=== PATIENT | male | born 1955 | race Asian ===

== ENCOUNTER 2016-10-08 14:02 | Emergency (ER) | payer MEDICARE, MEDICAID ==
[~2016-10-08] VITALS: Ht 182.9 cm; Wt 65.8 kg
[~2016-10-08 14:02] MED LIST: AMIODARONE HCL200 MG ORAL; AMLODIPINE BESYL5 MG ORAL; ANUSOL-HC25 MG RECTAL; ARICEPT10 MG ORAL; ASPIRIN EC81 MG ORAL; BENADRYL25 MG ORAL; CARVEDILOL25 MG ORAL; COLACE100 MG ORAL; CUBICIN1 MG IVPB; DULCOLAX10 MG RC; FLEET ENEMA133 ML RECTAL; FOSRENOL1000 MG PO; HYDRALAZINE HCL25 M1 ORAL; ISOSORBIDE MONO60 M1 PO; LACTULOSE20 GM/301 ORAL; LAMICTAL25 M1 PO; NEPHRO-VITE RX1 EAC1 PO; PROTEIN LIQUID PO; PROTONIX20 MG ORAL; RENVELA800 MG ORAL; SENSIPAR60 MG PO; TYLENOL325 MG ORAL; ZANTAC300 MG ORAL; ZOCOR20 M1 ORAL
[2016-10-08] MEDS ORDERED: Morphine Sulfate 2mg/ml Inj IM ONE (14:45)
--- NOTE | 2016-10-08 14:56 | Diagnostic Imaging Report ---
Indication: Pain Findings: 3 views of the right shoulder were obtained. There is referred to the distal clavicle. Glenohumeral joint alignment is normal. Bones are osteopenic. There is a stent in the right axilla. Impression: No acute injury. Distal clavicle resorption. Osteopenia
[2016-10-08 15:12] VITALS: BP 136/58
--- NOTE | 2016-10-08 15:38 | Emergency Room Report ---
History of Present Illness General Chief Complaint: Pain Source: Patient, Medical Record Present Illness HPI 60 YO M BIBEMS from SNF for right shoulder pain. Patient endorses fall on shoulder "2 weeks ago." States pain with elevating right shoulder above horizon. Denies pain to right upper arm, forearm, right hand/wrist. Denies pain to anywhere else, hitting head when he fell down. Allergies: Coded Allergies: No Known Allergies (Verified , 10/28/06) Patient History Past Medical History: see triage record, old chart reviewed Past Surgical History: none Pertinent Family History: none Social History: Denies: alcohol use, drug use, smoking Immunizations: UTD Reviewed Nursing Documentation: PMH: Agreed, PSxH: Agreed Nursing Documentation-PMH Past Medical History: No History, Except For Hx Cardiac Problems: Yes - A FIB,CAD,CHF Hx Hypertension: Yes Hx Pacemaker: No - PANCYTOPENIA, Hx COPD: Yes Hx Cancer: No Hx Gastrointestinal Problems: Yes - GERD Hx Dialysis: Yes - UNK SCHEDULE History Of Psychiatric Problem: Yes - SCHIZOPHRENIA Hx Cerebrovascular Accident: Yes - 2010 Hx Head Trauma: Yes Review of Systems All Other Systems: negative except mentioned in HPI Physical Exam Vital Signs Date Time Temp Pulse Resp B/P Pulse Ox O2 Delivery O2 Flow Rate FiO2 10/08/16 14:01 100 16 136/58 97 Room Air Sp02 EP Interpretation: reviewed, abnormal General Appearance: normal inspection, well appearing, no apparent distress, alert, GCS 15, non-toxic Head: normocephalic, atraumatic Eyes: bilateral eye EOMI, bilateral eye PERRL ENT: normal ENT inspection, hearing grossly normal, normal voice Neck: normal inspection, full range of motion, supple, no bony tend Respiratory: normal inspection, lungs clear, normal breath sounds, no respiratory distress, no retraction, no wheezing Cardiovascular #1: regular rate, rhythm, no edema Gastrointestinal: normal inspection, normal bowel sounds, non tender, soft, no guarding, no hernia Genitourinary: no CVA tenderness Musculoskeletal: other - Right shoulder: No obvious deformity. Normal contour of shoulder. Unable to elevate shoulder above horizon. Non tender to upper arm , forearm, wrist, hand Neurologic: normal inspection, alert, oriented x3, responsive, strategic communications manager III-XII nml as tested, motor strength/tone normal, speech normal Psychiatric: normal inspection, judgement/insight normal, mood/affect normal Skin: normal inspection, normal color, no rash, warm/dry Medical Decision Making ER Course Right shoulder xray negative for acute fracture, dislocation, soft tissue injury Distal clavicle resorption, osteopenia Analgesia provided DC back to [facility] Last Vital Signs Date Time Temp Pulse Resp B/P Pulse Ox O2 Delivery O2 Flow Rate FiO2 10/08/16 14:01 100 16 136/58 97 Room Air Status: improved Disposition: [facility] IGNACIO WEBB M.D. Oct 08, 2016 15:38
[2016-10-08 17:35] VITALS: BP 159/35
[2016-10-08 20:18] VITALS: BP 116/48
[2016-10-08 20:40] VITALS: BP 116/48
== END 2016-10-08 20:40 ==
LOC: EDBD → EMR 16:10
DX: M25.511 Pain in right shoulder (principal); I10 Essential (primary) hypertension; J44.9 Chronic obstructive pulmonary disease, unspecified; Z99.2 Dependence on renal dialysis; Z86.73 Personal history of transient ischemic attack (TIA), and cerebral infarction without residual deficits; F20.9 Schizophrenia, unspecified; I48.91 Unspecified atrial fibrillation; I50.9 Heart failure, unspecified; I25.10 Atherosclerotic heart disease of native coronary artery without angina pectoris; M85.811 Other specified disorders of bone density and structure, right shoulder
CPT/HCPCS: 73030; 96372; 99283; J2270

== ENCOUNTER 2016-10-25 06:59 | Inpatient (IN) | payer MEDICARE, MEDICAID ==
[~2016-10-25] VITALS: Ht 170.2 cm; Wt 55.1 kg
--- NOTE | 2016-10-25 07:08 | Emergency Room Report ---
History of Present Illness General Source: Patient Present Illness HPI Patient 60-year-old male who presented after having increased chest pain. Patient had acute onset of symptoms. This was associated with some abdominal pain. The patient brought in by EMS and was noted to be pain-free at the time of arrival. Patient had been given aspirin 162 mg by mouth. Patient had prior history of end-stage renal disease as well as cardiomyopathy. He also had history of COPD. He is currently receiving dialysis.The patient was not given nitroglycerin do to hypotension. Allergies: Coded Allergies: No Known Allergies (Verified , 10/28/06) Patient History Past Medical History: see triage record Reviewed Nursing Documentation: PMH: Agreed, PSxH: Agreed Nursing Documentation-PMH Hx Cardiac Problems: Yes - A FIB,CAD,CHF Hx Hypertension: Yes Hx Pacemaker: No - PANCYTOPENIA, Hx COPD: Yes Hx Cancer: No Hx Gastrointestinal Problems: Yes - GERD Hx Dialysis: Yes - UNK SCHEDULE Hx Cerebrovascular Accident: Yes - 2010 Hx Head Trauma: Yes Review of Systems All Other Systems: negative except mentioned in HPI Physical Exam Sp02 EP Interpretation: reviewed, normal General Appearance: normal inspection, well appearing, no apparent distress, alert, GCS 15, Chronically Ill Head: atraumatic ENT: normal ENT inspection, hearing grossly normal, normal voice Neck: normal inspection, full range of motion, supple, no bony tend Respiratory: normal inspection, lungs clear, normal breath sounds, no respiratory distress, no retraction, no wheezing Cardiovascular #1: regular rate, rhythm, no edema Gastrointestinal: normal inspection, normal bowel sounds, non tender, soft, no guarding, no hernia Genitourinary: no CVA tenderness Musculoskeletal: normal inspection, back normal, normal range of motion Neurologic: normal inspection, alert, oriented x3, responsive, speech normal, motor weakness - right side, right side facial droop Psychiatric: normal inspection, judgement/insight normal, mood/affect normal Skin: normal color, no rash, pallor Medical Decision Making Diagnostic Impression: Primary Impression: Hypotension Additional Impressions: Renal failure Sepsis ER Course Patient reason for chest pain. Differential diagnosis included but was not limited to acute coronary syndrome, pericarditis pulmonary embolism, pneumonia, aortic dissection, shingles, pneumothorax, aortic dissection, esophageal rupture , anemia. Because of complexity of patient's case laboratory testing and imaging studies were ordered.Patient was on cardiac exercise specialist. Rhythm strip interpreted by me showed sinus rhythm with a rate of [address] changes there is noted some lateral T-wave inversion. Patient was noted to be initially mildly hypotensive with a blood pressure 93/38 the patient was given small bolus of normal saline.Patient was noted to have CT of the abdomen pelvis read by radiology with marked splenomegaly. The patient would likely require dialysis. Dr. Jefe Aguayo was contacted for inpatient management due to the patient's hypotension as well as a chest pain. Labs Test 10/25/16 07:20 10/25/16 08:20 White Blood Count 7.5 K/UL (4.8-10.8) Red Blood Count 3.25 M/UL (4.70-6.10) Hemoglobin 9.9 G/DL (14.2-18.0) Hematocrit 33.1 % (42.0-52.0) Mean Corpuscular Volume 102 FL (80-99) Mean Corpuscular Hemoglobin 30.5 PG (27.0-31.0) Mean Corpuscular Hemoglobin Concent 29.9 G/DL (32.0-36.0) Red Cell Distribution Width 16.8 % (11.6-14.8) Platelet Count 37 K/UL (150-450) Mean Platelet Volume 9.6 FL (6.5-10.1) Neutrophils (%) (Auto) % (45.0-75.0) Lymphocytes (%) (Auto) % (20.0-45.0) Monocytes (%) (Auto) % (1.0-10.0) Eosinophils (%) (Auto) % (0.0-3.0) Basophils (%) (Auto) % (0.0-2.0) Differential Total Cells Counted 100 Neutrophils % (Manual) 82 % (45-75) Lymphocytes % (Manual) 7 % (20-45) Monocytes % (Manual) 10 % (1-10) Eosinophils % (Manual) 0 % (0-3) Basophils % (Manual) 0 % (0-2) Band Neutrophils 1 % (0-8) Platelet Estimate Decreased Platelet Morphology Normal Hypochromasia 1+ Anisocytosis 1+ Macrocytosis 1+ Prothrombin Time 13.0 SEC (9.30-11.50) Prothromb Time International Ratio 1.3 (0.9-1.1) Activated Partial Thromboplast Time 39 SEC (23-33) Sodium Level 139 mEQ/L (135-145) Potassium Level 4.2 mEQ/L (3.4-4.9) Chloride Level 95 mEQ/L (98-107) Carbon Dioxide Level 25 mEQ/L (20-30) Anion Gap 19 (5-15) Blood Urea Nitrogen 31 mg/dL (7-23) Creatinine 6.9 mg/dL (0.7-1.2) Estimat Glomerular Filtration Rate 8.2 mL/min (>60) Glucose Level 87 mg/dL (74-106) Lactic Acid Level 0.60 mmol/L (0.66-2.22) Calcium Level 7.3 mg/dL (8.6-10.2) Total Bilirubin 0.7 mg/dL (0.0-1.2) Aspartate Amino Transf (AST/SGOT) 6 U/L (5-40) Alanine Aminotransferase (ALT/SGPT) 5 U/L (3-41) Alkaline Phosphatase 101 U/L (40-129) Total Creatine Kinase 11 U/L (38-174) Creatine Kinase MB < 1.5 ng/mL (< 6.7) Creatine Kinase MB Relative Index Troponin I < 0.30 ng/mL (<=0.30) Total Protein 6.0 g/dL (6.6-8.7) Albumin 2.2 g/dL (3.5-5.2) Globulin 3.8 g/dL Albumin/Globulin Ratio 0.5 (1.0-2.7) Lipase 9 U/L (< 60) EKG Diagnostic Results Rate: normal - 98 Rhythm: NSR ST Segments: other - lateral st depression ASA given to the pt in ED: No - by EMS Rhythm Strip Diag. Results EP Interpretation: yes Rhythm: NSR, no PVC's, no ectopy Status: unchanged Disposition: ADMITTED INPATIENT Condition: Brian Melissa Oct 25, 2016 07:08
[2016-10-25] MEDS ORDERED: Famotidine 20 MG/ 2ML VIAL IVP ONE (07:15)
[2016-10-25 07:45] LABS: MEAN CORPUSCULAR HEMOGLOBIN 30.5 PG (27.0-31.0); MEAN CORPUSCULAR HGB CONC 29.9 G/DL (32.0-36.0); MEAN CORPUSCULAR VOLUME 102 FL (80-99); MEAN PLATELET VOLUME 9.6 FL (6.5-10.1); PLATELET COUNT 37 K/UL (150-450); RED BLOOD COUNT 3.25 M/UL (4.70-6.10); RED CELL DISTRIBUTION WIDTH 16.8 % (11.6-14.8); WHITE BLOOD COUNT 7.5 K/UL (4.8-10.8)
[2016-10-25 08:05] VITALS: BP 85/40
[2016-10-25 08:50] VITALS: BP 91/31
[2016-10-25 08:50] LABS: INR 1.3 (0.9-1.1)
--- NOTE | 2016-10-25 08:50 | Diagnostic Imaging Report ---
Indication: Left lower quadrant pain Technique: Spiral acquisitions obtained through the abdomen and pelvis. No oral contrast utilized, per emergency room physician request No IV contrast utilized, per referring physician request.. Multiplanar reconstructions were generated. Total dose length product 695 mGycm. CTDIvol(s) 13 mGy Comparison: None Findings: Lack of enteric contrast limits assessment of the GI tract. There are a few scattered colonic diverticula. No evidence of diverticulitis. The appendix is normal except that it does contain an appendicolith. There is equivocal mild wall thickening of the sigmoid colon, although this may be just an artifact of under distention. A small amount of free intraperitoneal fluid is seen within the pelvis, and adjacent to the tip of the spleen as well as along Gerota's fascia posteriorly on the right. No small bowel distention. The distal esophagus, stomach, duodenum are unremarkable. No evidence of free intraperitoneal air. Lack of IV contrast limits assessment of the solid organs The spleen is massively enlarged, measures 21 cm long axis dimension. No focal splenic abnormality is demonstrated. The kidneys are atrophic. An unusual large eggshell calcification with a central calcification is seen within the expected region of the left renal pelvis, measures 18 x 17 cm in diameter. There is no associated hydronephrosis. There is a parenchymal calcification within the left renal sinus, as well as multiple bilateral renal cysts. The gallbladder is mildly distended, but no radiopaque stones or wall thickening are evident. The liver, bile ducts, pancreas, adrenals are unremarkable. No retroperitoneal or mesenteric mass or adenopathy. No pelvic mass or adenopathy. There is a left femoral dialysis catheter. The tip of this is at the junction of the inferior vena cava and right atrium. There is edema of the subcutaneous fat and, to a lesser extent, the abdominal fat. There are bilateral small pleural effusions. The heart is enlarged. There is a small anterior wall pericardial effusion. The bones are unremarkable. Impression: Massive splenomegaly, spleen measuring 21 cm in length. No findings to suggest splenic rupture. Mild anasarca, with trace ascites, small bilateral pleural effusions, small pericardial effusion and mild edema of the subcutaneous and abdominal fat Equivocal mild wall thickening of the sigmoid colon, colitis cannot exclude although this may just be an artifact of under distention Diverticulosis. No evidence of diverticulitis Atrophic kidneys, consistent with medical renal disease Cardiomegaly Unusual eggshell calcification apparently within the left renal pelvis, most likely an unusual collecting system calcification. Possibly a post inflammatory lesion. Nonobstructive, face. Left femoral dialysis catheter Bilateral renal cysts The CT scanner at [facility] is accredited by the [employer] and the scans are performed using protocols designed to limit radiation exposure to as low as reasonably achievable to attain images of sufficient resolution adequate for diagnostic evaluation.
[2016-10-25 08:56] LABS: ALANINE AMINOTRANSFERASE 5 U/L (3-41); ALBUMIN/GLOBULIN RATIO 0.5 (1.0-2.7); ANION GAP 19 (5-15); ASPARTATE AMINO TRANSFERASE 6 U/L (5-40); CALCIUM 7.3 mg/dL (8.6-10.2); CARBON DIOXIDE 25 mEQ/L (20-30); CHLORIDE 95 mEQ/L (98-107); CREATININE 6.9 mg/dL (0.7-1.2); GLOMERULAR FILTRATION RATE 8.2 mL/min (>60); HEMOLYSIS 5; LIPASE 9 U/L (< 60); POTASSIUM 4.2 mEQ/L (3.4-4.9); SODIUM 139 mEQ/L (135-145); TROPONIN I < 0.30 ng/mL (<=0.30)
[2016-10-25 09:07] LABS: CKMB < 1.5 ng/mL (< 6.7)
[2016-10-25 09:13] LABS: ANISOCYTOSIS 1+; BAND NEUTROPHILS % (MANUAL) 1 % (0-8); BASOPHILS % (MANUAL) 0 % (0-2); EOSINOPHILS % (MANUAL) 0 % (0-3); HYPOCHROMASIA 1+; LYMPHOCYTES % (MANUAL) 7 % (20-45); MACROCYTES 1+; NEUTROPHILS % (MANUAL) 82 % (45-75); PLATELET ESTIMATE DECREASED; PLATELET MORPHOLOGY NORMAL; TOTAL CELLS COUNTED 100
[2016-10-25] MEDS ORDERED: metroNIDAZOLE 500mg 100 ML IVPB ONE (09:45)
[2016-10-25] MEDS ORDERED: Ampicillin/Sulbactam Sod 3 GM in NS 110 ML IVPB ONE (09:45)
[2016-10-25] MEDS ORDERED: Lactulose 20gm/30ml UDC ORAL PRN (10:30)
[2016-10-25] MEDS ORDERED: Unasyn 3gm Inj ONE (11:29)
[2016-10-25 11:45] VITALS: BP 91/37
--- NOTE | 2016-10-25 11:58 | Diagnostic Imaging Report ---
Indication: Chest pain Technique: One view of the chest Comparison: 02/19/2016 Findings: Tip of a femoral dialysis catheter is seen in the low right atrium. The lungs and pleural spaces are clear. Heart size is normal pleural effusions described on subsequent CT scan are not evident on plain radiography Impression: No acute process
[2016-10-25] MEDS: Aspirin EC 81mg tab ORAL SCH (12:00)
[2016-10-25 12:07] VITALS: BP 95/38
[2016-10-25] MEDS: Carvedilol 25mg Tab ORAL SCH ×2 (12:30→21:43)
[2016-10-25] MEDS: Lanthanum 1000mg tab ORAL SCH (12:30)
[2016-10-25] MEDS: Nephrovite tab ORAL SCH (12:42)
[2016-10-25] MEDS: Sensipar 30mg Tab ORAL SCH (12:42)
[2016-10-25] MEDS: Amiodarone 200mg tab ORAL SCH (12:47)
[2016-10-25] MEDS ORDERED: HydrALAZINE 25mg tab ORAL SCH (14:00)
--- NOTE | 2016-10-25 19:18 | Consultation ---
DATE OF CONSULTATION: 10/25/2016 NEPHROLOGY CONSULTATION REFERRING PHYSICIAN: Jefe Aguayo M.D. REASON FOR CONSULTATION: End-stage renal disease. HISTORY OF PRESENT ILLNESS: The patient is a 61-year-old man with end-stage renal disease, presents with apparently three episodes of chest pain, squeezing in nature, substernal this morning in the ECF. He is found to have low blood pressure in the emergency room. The patient states he has been on dialysis for more than 20 years. Initially had a right arm AV fistula, but the last three months he has been dialyzed from the left groin PermCath. He has had a prior stroke with left-sided weakness. He has also had a history of hypertension, but his blood pressure has been low in the range of 100/60 lately according to the patient. The CT scanning of the abdomen was done apparently for left lower quadrant pain showing anasarca, but no other major lesions. PAST SURGICAL HISTORY: AV access right arm. MEDICATIONS: Amiodarone 200 mg daily, DSS 100 mg b.i.d., Aricept 10 mg daily, Imdur 30 mg daily, Nephro-Kristin one daily, Renvela 800 mg daily, Sensipar 60 mg daily, Fosrenol 1000 mg with breakfast, Lipitor 10 mg daily, Megace 40 mg t.i.d., aspirin 81 mg daily, liquid protein 30 mL daily and he has p.r.n. for Tylenol, Zantac, lactulose, hydralazine and Benadryl. There is Eliquis 2.5 mg b.i.d for atrial fibrillation. Aspirin discontinued. one can t.i.d. and nitroglycerin p.r.n., Remeron 7.5 mg at bedtime. ALLERGIES: None known. HABITS: He is a smoker most of his adult life and he says he continues to smoke a pack a day. Alcohol, he states he quit five years ago. Social, he lives in the [facility]. REVIEW OF SYSTEMS: HEENT: He states vision and hearing is good. Endocrine: He is not aware of any diabetes or thyroid disease. He is on medications for hyperparathyroid. Pulmonary: History of smoking as above. Cardiovascular: He has had chest pains in the past apparently. As far as I can ascertain from the wall and floor tiler, he has not had any coronary artery stenting or angioplasties. Gastrointestinal: He had nausea and vomiting today. No gastrointestinal bleeding. Genitourinary: Makes little urine. Neurologic: History of CVA with left-sided weakness. PHYSICAL EXAMINATION: GENERAL: The patient was seen shortly after arrival, lying in bed, alert, in no acute distress. VITAL SIGNS: Blood pressure is 95/38, pulse 91, temperature 96.8 degrees, and pulse oximetry 99% on room air. HEENT: Sclerae nonicteric. Ocular motions intact in all directions. Oral mucosa moist. NECK: No adenopathy or thyroid enlargement. LUNGS: Clear. HEART: Rhythm is regular. I hear no murmur. ABDOMEN: Soft. No organomegaly or masses. EXTREMITIES: No edema, cyanosis or clubbing. There is muscle wasting. He has a femoral catheter in the left groin. NEUROLOGIC: He is alert and oriented. Cranial nerves are intact. He has left hemipareses. LABORATORY AND DIAGNOSTIC DATA: Review of lab shows chest x-ray with no active disease. White count 9.5 and hemoglobin 9.9. Sodium 139, potassium 4.2, BUN 31, and creatinine 6.9. The troponin less than 0.30. Albumin is 2.2. IMPRESSION: 1. End-stage renal disease, status post missed dialysis. 2. Chest pain, possible acute coronary syndrome with initial troponin is negative and no acute electrocardiogram changes. 3. Moderate protein calorie malnutrition. 4. History of cerebrovascular accident with left hemiparesis. 5. History of active smoking. 6. History of catheter access for hemodialysis. PLAN: Dialysis will be arranged in the hospital. His blood pressure is low. He is not fluid overloaded significantly and we will not do any fluid removal in view of his low blood pressure. Medications have been reviewed for end-stage renal disease and we will watch closely in view of his comorbidities. Thank you so much. Lukas Malloy M.D. DR: DYLAN JOB#: [id number] CC:
[2016-10-25 20:00] VITALS: BP 108/40
[2016-10-25] MEDS ORDERED: Heparin 5000 units/ml inj SUBQ SCH (21:00)
[2016-10-25] MEDS: Donepezil 10mg tab ORAL SCH (21:40)
[2016-10-25] MEDS: Atorvastatin 20mg tab ORAL SCH (21:43)
[2016-10-25] MEDS: Epogen (for ESRD on dialysis) SUBQ SCH (21:44)
[2016-10-26] VITALS: BP 104/54
[2016-10-26 04:00] VITALS: BP 109/43
[2016-10-26 05:59] LABS: TROPONIN I < 0.30 ng/mL (<=0.30)
[2016-10-26] MEDS ORDERED: Heparin Sod 1000 units/ml 10ml IV PRN (06:00)
[2016-10-26 08:00] VITALS: BP 95/41
[2016-10-26] MEDS: Carvedilol 25mg Tab ORAL SCH ×2 (09:00→21:00)
[2016-10-26] MEDS: Amiodarone 200mg tab ORAL SCH (09:00)
--- NOTE | 2016-10-26 09:12 | General Progress Note ---
Assessment/Plan Problem List: (1) Unstable angina ICD Codes: I20.0 - Unstable angina SNOMED: 4924131 (2) ESRD (end stage renal disease) on dialysis ICD Codes: N18.6 - End stage renal disease; Z99.2 - Dependence on renal dialysis SNOMED: 360949795 (3) Chest pain ICD Codes: R07.9 - Chest pain, unspecified SNOMED: 05719968 (4) Renal failure ICD Codes: N19 - Unspecified kidney failure SNOMED: 53176856 (5) Hypotension ICD Codes: I95.9 - Hypotension, unspecified SNOMED: 88854450 Status: stable Assessment/Plan cards eval check duplex antiplt rx HD Subjective ROS Limited/Unobtainable: Yes Constitutional: Reports: malaise, weakness HEENT: Reports: no symptoms Cardiovascular: Reports: chest pain Respiratory: Reports: no symptoms Gastrointestinal/Abdominal: Reports: no symptoms Genitourinary: Reports: no symptoms Neurologic/Psychiatric: Reports: no symptoms Endocrine: Reports: no symptoms Hematologic/Lymphatic: Reports: no symptoms Allergies: Coded Allergies: No Known Allergies (Verified , 10/28/06) All Systems: reviewed and negative except above Subjective no chest pain awaiting HD today. no sob. did not eat Objective Last 24 Hour Vital Signs Date Time Temp Pulse Resp B/P Pulse Ox O2 Delivery O2 Flow Rate FiO2 10/26/16 04:00 82 10/26/16 04:00 98.2 95 14 109/43 95 Room Air 10/26/16 00:00 98.2 89 14 104/54 96 Room Air 10/26/16 00:00 88 10/25/16 21:43 93 108/40 10/25/16 20:00 97.2 93 21 108/40 99 Room Air 10/25/16 20:00 98 10/25/16 12:30 91 95/38 10/25/16 12:15 91 10/25/16 12:07 96.8 91 20 95/38 99 Room Air 10/25/16 11:45 97.5 88 18 91/37 100 Room Air 88 10/25/16 11:41 88 18 91/37 100 Room Air Intake and Output 10/25/16 10/26/16 19:00 07:00 Intake Total 520 ml 300 ml Output Total 0 ml Balance 520 ml 300 ml Intake Oral 320 ml 300 ml IV Total 200 ml Output Urine Total 0 ml # Voids 3 # Bowel Movements 3 Laboratory Tests 10/26/16 04:20: Troponin I < 0.30 Height (Feet): 5 Height (Inches): 7.00 Weight (Pounds): 110 General Appearance: WD/WN, alert Neck: normal alignment, supple, normal inspection Cardiovascular: regular rhythm Respiratory/Chest: lungs clear, normal breath sounds, no respiratory distress, no accessory muscle use Abdomen: normal bowel sounds, non tender, soft, no organomegaly, no mass Edema: no edema noted Arm (L), no edema noted Arm (R), no edema noted Leg (L), no edema noted Leg (R), no edema noted Pedal (L), no edema noted Pedal (R), no edema noted Generalized Neurologic: alert, responsive Skin: normal pigmentation ALVARADO LOZANO Oct 26, 2016 09:12
[2016-10-26] MEDS: Aspirin EC 81mg tab ORAL SCH (09:55)
[2016-10-26] MEDS: Sensipar 30mg Tab ORAL SCH (09:56)
[2016-10-26] MEDS: Nephrovite tab ORAL SCH (09:56)
[2016-10-26] MEDS: Lanthanum 1000mg tab ORAL SCH (09:56)
--- NOTE | 2016-10-26 11:03 | Nephrology Progress Note ---
Assessment/Plan Problem List: (1) Malnutrition of moderate degree (2) CVA, old, hemiparesis (3) ESRD (end stage renal disease) on dialysis (4) Chest pain Plan dialysis 10/26 uf limited by low normal bp Subjective Constitutional: Reports: no symptoms HEENT: Reports: no symptoms Genitourinary: Reports: no symptoms Neurologic/Psychiatric: Reports: no symptoms Objective Objective Last 24 Hour Vital Signs Date Time Temp Pulse Resp B/P Pulse Ox O2 Delivery O2 Flow Rate FiO2 10/26/16 09:00 83 95/41 10/26/16 08:00 83 10/26/16 08:00 98.1 83 18 95/41 98 Room Air 10/26/16 04:00 82 10/26/16 04:00 98.2 95 14 109/43 95 Room Air 10/26/16 00:00 98.2 89 14 104/54 96 Room Air 10/26/16 00:00 88 10/25/16 21:43 93 108/40 10/25/16 20:00 97.2 93 21 108/40 99 Room Air 10/25/16 20:00 98 10/25/16 12:30 91 95/38 10/25/16 12:15 91 10/25/16 12:07 96.8 91 20 95/38 99 Room Air 10/25/16 11:45 97.5 88 18 91/37 100 Room Air 88 10/25/16 11:41 88 18 91/37 100 Room Air Intake and Output 10/25/16 10/26/16 19:00 07:00 Intake Total 520 ml 300 ml Output Total 0 ml Balance 520 ml 300 ml Intake Oral 320 ml 300 ml IV Total 200 ml Output Urine Total 0 ml # Voids 3 # Bowel Movements 3 Laboratory Tests 10/26/16 04:20: Troponin I < 0.30 Height (Feet): 5 Height (Inches): 7.00 Weight (Pounds): 110 General Appearance: no apparent distress, alert EENT: normal ENT inspection Neck: normal alignment Cardiovascular: normal rate, regular rhythm Respiratory/Chest: lungs clear Abdomen: non tender, no organomegaly Extremities: other - no edema Neurologic: motor weakness LOUIE DÍAZ Oct 26, 2016 11:03
[2016-10-26 12:22] VITALS: BP 99/47
[2016-10-26 14:25] LABS: BILIRUBIN,DIRECT 0.2 mg/dL (0.1-0.3); TOTAL PROTEIN 5.7 g/dL (6.6-8.7)
[2016-10-26 16:00] VITALS: BP 80/36
--- NOTE | 2016-10-26 18:08 | History and Physical Report ---
DATE OF ADMISSION: 10/25/2016 HISTORY OF PRESENT ILLNESS: This patient was evaluated in the emergency room. The patient is a 60-year-old male, well known to me. He has a history of end-stage renal disease on chronic hemodialysis, hypertension, stroke, paroxysmal atrial fibrillation, COPD, and he has a prior history of schizoaffective disorder. The patient was transferred from a long term facility with complaints of chest pain. According to the patient, he had substernal chest pain and was transferred to the emergency room. He was noted to be hypotensive. Initial cardiac enzymes in the emergency room were unremarkable. He did have a potassium of 6. Chest x-ray was clear. In light of the patient's prior cardiac history, he is now admitted for further evaluation for possible unstable angina and acute coronary syndrome. PAST MEDICAL HISTORY: As above. PAST SURGICAL HISTORY: History of a left upper extremity AV fistula. MEDICATIONS: Current mediations reconciled and reviewed. ALLERGIES: None. SOCIAL HISTORY: The patient has a prior history of smoking. No alcohol. No drugs. FAMILY HISTORY: None. REVIEW OF SYSTEMS: General: No fever or chills. HEENT: No headaches or visual changes. Cardiopulmonary: Positive chest pain, but no shortness of breath. Gastrointestinal: No nausea or vomiting. Genitourinary: No urgency or frequency. Musculoskeletal: No joint pain or swelling. Neurologic: No evidence of seizures. PHYSICAL EXAMINATION: GENERAL: The patient is well-developed and chronically ill appearing male. He is awake, alert, and answers questions. VITAL SIGNS: Temperature was 98.1 degrees, pulse is 83, respirations 18, and blood pressure 108/40. HEENT: His pupils are equal, round, and reactive to light. Oropharynx clear. NECK: Supple. There is no jugular venous distention. HEART: Regular rate and rhythm. LUNGS: Lungs are clear. ABDOMEN: Soft, nontender and nondistended. EXTREMITIES: No clubbing, cyanosis or edema. There is an AV fistula in the left upper extremity. LABORATORY AND DIAGNOSTIC DATA: Troponin was negative. White count 7, hemoglobin 9, hematocrit 33, and platelets of 37,000. Lactic acid was 0.6. Bicarbonate was 25. LFTs were unremarkable. ASSESSMENT: This is a pleasant male who complaints of chest pain. 1. Chest pain, possible unstable angina/acute coronary syndrome. 2. Chronic obstructive pulmonary disease. 3. Hypertension, now with low blood pressure. 4. History of end-stage renal disease, on chronic hemodialysis. PLAN: Monitor serial troponins. Continue antiplatelet therapy. as needed. Cardiology and Renal consultations will be obtained. Monitor platelet count. Suspect it is secondary to patient's splenomegaly, unclear of the etiology. Consider Hematology/Oncology evaluation. Jefe Aguayo M.D. DR: SON JOB#: [id number] CC:
[2016-10-26 20:00] VITALS: BP 86/37
[2016-10-26] MEDS: Atorvastatin 20mg tab ORAL SCH (21:52)
[2016-10-26] MEDS: Donepezil 10mg tab ORAL SCH (21:54)
[2016-10-27 00:10] VITALS: BP 95/45
[2016-10-27 04:00] VITALS: BP 99/50
[2016-10-27 08:30] VITALS: BP 83/37
[2016-10-27] MEDS ORDERED: NS 250 ML IVPB ONE ×2 (08:45→14:15)
--- NOTE | 2016-10-27 08:58 | General Progress Note ---
Assessment/Plan Problem List: (1) Unstable angina ICD Codes: I20.0 - Unstable angina SNOMED: 4522966 (2) ESRD (end stage renal disease) on dialysis ICD Codes: N18.6 - End stage renal disease; Z99.2 - Dependence on renal dialysis SNOMED: 600285170 (3) Chest pain ICD Codes: R07.9 - Chest pain, unspecified SNOMED: 18575144 (4) Renal failure ICD Codes: N19 - Unspecified kidney failure SNOMED: 44887862 (5) Hypotension ICD Codes: I95.9 - Hypotension, unspecified SNOMED: 37553007 Status: stable, progressing Assessment/Plan cards eval heparin drip antiplt rx HD ivf bolus echo Subjective ROS Limited/Unobtainable: No Constitutional: Reports: fever, malaise HEENT: Reports: no symptoms Cardiovascular: Reports: no symptoms Respiratory: Reports: no symptoms Gastrointestinal/Abdominal: Reports: no symptoms Genitourinary: Reports: no symptoms Neurologic/Psychiatric: Reports: no symptoms Endocrine: Reports: no symptoms Hematologic/Lymphatic: Reports: no symptoms Allergies: Coded Allergies: No Known Allergies (Verified , 10/28/06) All Systems: reviewed and negative except above Subjective no chest pain s/p HD hypotensive this am venous duplex shows femoral dvt no sob. did not eat Objective Last 24 Hour Vital Signs Date Time Temp Pulse Resp B/P Pulse Ox O2 Delivery O2 Flow Rate FiO2 10/27/16 08:30 96.8 98 19 83/37 100 Room Air 10/27/16 05:00 96 10/27/16 04:00 97.9 96 14 99/50 95 Room Air 10/27/16 00:10 98.0 86 18 95/45 98 Room Air 10/27/16 00:00 86 10/26/16 21:00 90 86/37 10/26/16 20:00 91 10/26/16 20:00 98.1 90 18 86/37 98 Room Air 10/26/16 16:27 Room Air 10/26/16 16:16 Room Air 10/26/16 16:00 88 10/26/16 16:00 87 18 80/36 98 Room Air 10/26/16 12:22 97.5 84 18 99/47 100 Room Air 10/26/16 12:00 82 10/26/16 09:00 83 95/41 Intake and Output 3/18/17 3/19/17 19:00 07:00 Intake Total 1360 ml 300 ml Balance 1360 ml 300 ml Intake Oral 360 ml 300 ml IV Total 1000 ml # Bowel Movements 1 Laboratory Tests 10/26/16 15:53: Hepatitis A IgM Antibody [Pending], Hepatitis B Surface Antigen [Pending], Hepatitis B Core IgM Antibody [Pending], Hepatitis C Antibody [Pending] Height (Feet): 5 Height (Inches): 7.00 Weight (Pounds): 110 General Appearance: WD/WN, alert, thin Neck: supple Cardiovascular: regular rhythm Respiratory/Chest: chest wall non-tender, lungs clear, normal breath sounds Abdomen: normal bowel sounds, non tender, soft, no organomegaly Edema: no edema noted Arm (L), no edema noted Arm (R), no edema noted Leg (L), no edema noted Leg (R), no edema noted Pedal (L), no edema noted Pedal (R), no edema noted Generalized Edema: trace edema Neurologic: alert, responsive AVLARADO LOZANO Oct 27, 2016 08:58
[2016-10-27] MEDS: Amiodarone 200mg tab ORAL SCH (09:00)
[2016-10-27] MEDS: Carvedilol 25mg Tab ORAL SCH ×2 (09:00→20:51)
[2016-10-27] MEDS ORDERED: Heparin 5000 units/ml inj IV ONE (09:00)
[2016-10-27] MEDS: Aspirin EC 81mg tab ORAL SCH (09:00)
[2016-10-27] MEDS: Nephrovite tab ORAL SCH (09:00)
[2016-10-27] MEDS: Lanthanum 1000mg tab ORAL SCH (09:00)
[2016-10-27] MEDS ORDERED: Heparin 25,000u/D5W 500ml 500 ML IV SCH (09:00)
[2016-10-27] MEDS: Sensipar 30mg Tab ORAL SCH (09:00)
[2016-10-27 12:03] VITALS: BP 86/35
--- NOTE | 2016-10-27 14:19 | Nephrology Progress Note ---
Assessment/Plan Problem List: (1) Malnutrition of moderate degree (2) CVA, old, hemiparesis (3) ESRD (end stage renal disease) on dialysis (4) Chest pain (5) DVT (deep venous thrombosis) (6) Bacteremia associated with intravascular line (7) Sepsis Plan dialysis 10/26 uf limited by low normal bp, fluid bolus given 10/27 , coag neg staph in bc, vanco ordered, dvt agree with anticoag, would try to avoid ivc filter above femoral dialysis cath, cath may need removal Subjective Constitutional: Reports: weakness HEENT: Reports: no symptoms Neurologic/Psychiatric: Reports: pre-existing deficit Objective Objective Last 24 Hour Vital Signs Date Time Temp Pulse Resp B/P Pulse Ox O2 Delivery O2 Flow Rate FiO2 10/27/16 12:03 96.7 93 20 86/35 99 Room Air 10/27/16 12:00 91 10/27/16 09:00 98 83/37 10/27/16 08:30 96.8 98 19 83/37 100 Room Air 10/27/16 08:00 87 10/27/16 05:00 96 10/27/16 04:00 97.9 96 14 99/50 95 Room Air 10/27/16 00:10 98.0 86 18 95/45 98 Room Air 10/27/16 00:00 86 10/26/16 21:00 90 86/37 10/26/16 20:00 91 10/26/16 20:00 98.1 90 18 86/37 98 Room Air 10/26/16 16:27 Room Air 10/26/16 16:16 Room Air 10/26/16 16:00 88 10/26/16 16:00 87 18 80/36 98 Room Air Intake and Output 10/26/16 10/27/16 19:00 07:00 Intake Total 1360 ml 300 ml Balance 1360 ml 300 ml Intake Oral 360 ml 300 ml IV Total 1000 ml # Bowel Movements 1 Laboratory Tests 10/26/16 15:53: Hepatitis A IgM Antibody [Pending], Hepatitis B Surface Antigen [Pending], Hepatitis B Core IgM Antibody [Pending], Hepatitis C Antibody [Pending] 10/27/16 09:00: Activated Partial Thromboplast Time 34H Height (Feet): 5 Height (Inches): 7.00 Weight (Pounds): 110 General Appearance: no apparent distress, thin EENT: normal ENT inspection Neck: normal alignment, supple Cardiovascular: normal rate, regular rhythm Respiratory/Chest: no respiratory distress Abdomen: non tender, soft Extremities: other - no edema Neurologic: motor weakness LOUIE DÍAZ Oct 27, 2016 14:19
[2016-10-27] MEDS ORDERED: Lidocaine 1% Plain 30 ml INJ PRN (14:30)
[2016-10-27] MEDS ORDERED: Sodium Bicarbonate 8.4% 50ml Inj IV PRN (14:30)
[2016-10-27] MEDS ORDERED: Heparin 2000 units/Ns 1000ml INJ PRN (14:30)
[2016-10-27 16:00] VITALS: BP 74/35
[2016-10-27] MEDS ORDERED: Vancomycin 1gm/D5W 275ml IVPB ONE ×2 (16:00)
[2016-10-27 20:00] VITALS: BP 86/49
[2016-10-27] MEDS: Donepezil 10mg tab ORAL SCH (21:51)
[2016-10-27] MEDS: Atorvastatin 20mg tab ORAL SCH (21:51)
[2016-10-28] VITALS (7 sets, daily range): BP systolic 74–90; BP diastolic 36–55
[2016-10-28] MEDS ORDERED: NS 250 ML IVPB ONE (01:15)
--- NOTE | 2016-10-28 03:08 | Progress Note ---
DATE: 10/27/2016 CARDIOLOGY PROGRESS NOTE: SUBJECTIVE: The patient's condition remains tenuous and unstable. He is on the cardiac observation unit. He has required fluid challenges for low blood pressure readings .he has had blood cultures positive for Coag-negative staph. The patient also has a positive DVT of his right lower extremity and has a femoral catheter in place for hemodialysis. The patient's troponins has been negative. OBJECTIVE: VITAL SIGNS: Blood pressure 74/35, heart rate 88, respiratory rate 18, and afebrile. Monitor sinus. LUNGS: Bilateral breath sounds. CARDIAC: Regular rhythm and rate. Normal S1, S2. ABDOMEN: Soft. EXTREMITIES: No edema. Right catheter site is without drainage. LABORATORY DATA: Albumin 2.6. IMPRESSION: 1. Acute deep venous thrombosis. 2. Coagulase-negative staph bacteremia. 3. Shock likely due to sepsis. 4. Paroxysmal atrial fibrillation on amiodarone . 5. History of cerebrovascular accident with left-sided weakness. 6. Anginal episode, now recovered. 7. Moderate protein calorie malnutrition. PLAN: Volume resuscitation. May need pressors. Consider discontinuation of femoral dialysis catheter. Full anticoagulation. Monitor blood counts. Protein supplement. Continue amiodarone at maintenance doses. Vasu Hayes M.D. DR: Antonieta JOB#: [id number] CC:
--- NOTE | 2016-10-28 04:08 | Consultation ---
DATE OF CONSULTATION: 10/26/2016 REQUESTING PHYSICIAN: Jefe Aguayo M.D. REASON: Chest pain. HISTORY OF PRESENT ILLNESS: This is a 60-year-old male with a history of end-stage renal disease, on hemodialysis, presented to the emergency room with chest pain. He resides at a [place] [facility] facility. He also was hypotensive on arrival to the emergency room. He had abnormal electrolytes, but a normal troponin level. Hospitalization was initiated. I have been asked to assist with further care. PAST MEDICAL HISTORY: Includes: 1. End-stage renal disease, on hemodialysis. 2. Cerebrovascular disease with left hemiparesis. 3. History of right arm AV fistula, nonfunctional, now with left groin PermCath. 4. Hypertension. 5. Paroxysmal atrial fibrillation. 6. Chronic obstructive pulmonary disease. 7. Hyperlipidemia. 8. Anemia of chronic kidney disease. 9. Atherosclerotic cardiovascular disease. SOCIAL HISTORY: Active smoker 50 plus pack years. Moderate alcohol in the past up until five years ago. ALLERGIES: No allergies. MEDICATIONS: Reviewed and reconciled. REVIEW OF SYSTEMS: No history of thyroid disorder or diabetes. He is on anti-lipid drugs. No history of visual or hearing loss. No history of blood clotting. He is on anticoagulants for his atrial fibrillation. There is no history of coronary artery stents in the past or myocardial infarction. He has had a prior stroke. He was on dialysis three times a week. He has not had any change in bowel habits and he denies melena or bright red blood per rectum. PHYSICAL EXAMINATION: VITAL SIGNS: Blood pressure 95/38, pulse 91, respirations 20, and afebrile. HEENT: Normocephalic and atraumatic. Conjunctivae are pink. Oropharynx is clear. NECK: Supple. Jugular venous pressure normal. LUNGS: Clear CARDIAC: Regular rhythm and rate. Normal S1 and S2 with a fourth heart sound. ABDOMEN: Soft and nontender. Dialysis catheter site clean and dry. EXTREMITIES: No edema. IMAGING AND LABORATORY DATA: EKG revealed sinus rhythm at 98 beats per minute, nonspecific ST changes in the lateral leads. White count 7.5 and hemoglobin 9.9. Sodium 139, potassium 4.2, bicarbonate 25, BUN 31, and creatinine 6.9. Troponin negative x3. Echocardiogram revealed normal ejection fraction and moderate aortic, mitral, and tricuspid regurgitation with no pulmonary hypertension. IMPRESSION: 1. Acute coronary syndrome. 2. Hypotension. 3. Chronic obstructive pulmonary disease. 4. End-stage renal disease. 5. Anemia of chronic kidney disease. 6. Cerebrovascular accident with left-sided weakness. PLAN: 1. Cardiac monitoring. 2. Serial troponin. 3. Antiplatelet therapy. 4. Hemodialysis without ultrafiltration. 5. May need fluid challenge. 6. Hold antihypertensives. 7. Further recommendations to follow based on clinical course. Vasu Hayes M.D. DR: AUBREY JOB#: [id number] CC:
[2016-10-28 04:20] LABS: MEAN CORPUSCULAR HEMOGLOBIN 30.3 PG (27.0-31.0); MEAN CORPUSCULAR HGB CONC 30.5 G/DL (32.0-36.0); MEAN CORPUSCULAR VOLUME 99 FL (80-99); MEAN PLATELET VOLUME 8.4 FL (6.5-10.1); PLATELET COUNT 57 K/UL (150-450); RED BLOOD COUNT 2.63 M/UL (4.70-6.10); RED CELL DISTRIBUTION WIDTH 16.7 % (11.6-14.8); WHITE BLOOD COUNT 6.2 K/UL (4.8-10.8)
[2016-10-28 04:30] LABS: INR 1.2 (0.9-1.1); PROTHROMBIN TIME 12.1 SEC (9.30-11.50)
[2016-10-28 04:39] LABS: CALCIUM 7.4 mg/dL (8.6-10.2); CREATININE 7.3 mg/dL (0.7-1.2); GLOMERULAR FILTRATION RATE 7.7 mL/min (>60); POTASSIUM 4.4 mEQ/L (3.4-4.9)
[2016-10-28 08:28] LABS: ANISOCYTOSIS 1+; BAND NEUTROPHILS % (MANUAL) 0 % (0-8); BASOPHILS % (MANUAL) 0 % (0-2); EOSINOPHILS % (MANUAL) 0 % (0-3); HYPOCHROMASIA 1+; LYMPHOCYTES % (MANUAL) 16 % (20-45); NEUTROPHILS % (MANUAL) 82 % (45-75); PLATELET ESTIMATE DECREASED; PLATELET MORPHOLOGY NORMAL; TOTAL CELLS COUNTED 100
[2016-10-28 08:29] LABS: MACROCYTES 1+
[2016-10-28] MEDS: Aspirin EC 81mg tab ORAL SCH (08:39)
[2016-10-28] MEDS: Amiodarone 200mg tab ORAL SCH (08:39)
[2016-10-28] MEDS: Sensipar 30mg Tab ORAL SCH (08:39)
[2016-10-28] MEDS: Nephrovite tab ORAL SCH (08:39)
[2016-10-28] MEDS: Lanthanum 1000mg tab ORAL SCH (08:40)
[2016-10-28] MEDS: Carvedilol 25mg Tab ORAL SCH ×2 (08:40→20:47)
[2016-10-28 08:42] LABS: PATH BLOOD SMEAR/OMC SENT TO PATHOLOGIST
[2016-10-28 10:05] LABS: HEMOLYSIS 4; IRON 29 ug/dL (59-158); TOTAL IRON BINDING CAPACITY 109 ug/dL (250-400)
--- NOTE | 2016-10-28 14:09 | General Progress Note ---
Assessment/Plan Problem List: (1) Unstable angina ICD Codes: I20.0 - Unstable angina SNOMED: 2132114 (2) ESRD (end stage renal disease) on dialysis ICD Codes: N18.6 - End stage renal disease; Z99.2 - Dependence on renal dialysis SNOMED: 151349576 (3) Chest pain ICD Codes: R07.9 - Chest pain, unspecified SNOMED: 97535247 (4) Renal failure ICD Codes: N19 - Unspecified kidney failure SNOMED: 98883428 (5) Hypotension ICD Codes: I95.9 - Hypotension, unspecified SNOMED: 19735653 Status: stable, progressing Assessment/Plan cards eval heme eval antiplt rx HD ivf bolus prn transfuse transposition and avf weds if cleared by all by cannot anticoagulate/heparinze due to anemia and low plts bed rest echo Subjective ROS Limited/Unobtainable: No Constitutional: Reports: malaise, weakness HEENT: Reports: no symptoms Cardiovascular: Reports: no symptoms Respiratory: Reports: no symptoms Gastrointestinal/Abdominal: Reports: no symptoms Genitourinary: Reports: no symptoms Neurologic/Psychiatric: Reports: no symptoms Endocrine: Reports: no symptoms Hematologic/Lymphatic: Reports: anemia Allergies: Coded Allergies: No Known Allergies (Verified , 10/28/06) All Systems: reviewed and negative except above Subjective + dvt on duplex. cannot place ivc filter due to fermoral perm cath pt refusing removal cannot anticoagulate safely with low plts no bleeding noted Objective Last 24 Hour Vital Signs Date Time Temp Pulse Resp B/P Pulse Ox O2 Delivery O2 Flow Rate FiO2 10/28/16 12:00 82 10/28/16 11:26 97.9 87 20 74/37 98 Room Air 10/28/16 08:40 84 83/55 10/28/16 08:02 97.7 84 20 83/55 97 Room Air 10/28/16 08:00 87 10/28/16 04:00 96.8 89 20 82/36 98 Room Air 10/28/16 03:56 91 10/28/16 01:30 90 10/28/16 00:45 96.8 89 20 82/36 98 Room Air 10/27/16 20:51 78 86/49 10/27/16 20:00 97.7 96 20 86/49 96 Room Air 10/27/16 20:00 90 10/27/16 16:00 85 10/27/16 16:00 97.0 88 18 74/35 93 Room Air Intake and Output 10/27/16 10/28/16 19:00 07:00 Intake Total 2643 ml 590 ml Output Total 0 ml Balance 2643 ml 590 ml Intake Oral 370 ml 240 ml IV Total 2273 ml 100 ml Hemodialysis 250 ml Output Urine Total 0 ml # Bowel Movements 1 1 Laboratory Tests 10/28/16 04:00: White Blood Count 6.2, Red Blood Count 2.63L, Hemoglobin 8.0L, Hematocrit 26.2L , Mean Corpuscular Volume 99, Mean Corpuscular Hemoglobin 30.3, Mean Corpuscular Hemoglobin Concent 30.5L, Red Cell Distribution Width 16.7H, Platelet Count 57L, Mean Platelet Volume 8.4, Neutrophils (%) (Auto) , Lymphocytes (%) (Auto) , Monocytes (%) (Auto) , Eosinophils (%) (Auto) , Basophils (%) (Auto) , Differential Total Cells Counted 100, Neutrophils % ( Manual) 82H, Lymphocytes % (Manual) 16L, Monocytes % (Manual) 2, Eosinophils % ( Manual) 0, Basophils % (Manual) 0, Band Neutrophils 0, Platelet Estimate DecreasedL, Platelet Morphology Normal, Hypochromasia 1+, Anisocytosis 1+, Macrocytosis 1+, Reticulocyte Count 1.1, Prothrombin Time 12.1H, Prothromb Time International Ratio 1.2H, Activated Partial Thromboplast Time 35H, Sodium Level 139, Potassium Level 4.4, Chloride Level 102, Carbon Dioxide Level 21, Anion Gap 16H, Blood Urea Nitrogen 35H, Creatinine 7.3H, Estimat Glomerular Filtration Rate 7.7, Glucose Level 110H, Calcium Level 7.4L, Iron Level 29L, Total Iron Binding Capacity 109L, Percent Iron Saturation 27, Unsaturated Iron Binding 80L, Ferritin [Pending], Random Vancomycin Level 25.9, Heparin-PF4 Antibody Screen [Pending], HIV (1&2) Antibody Rapid Negative Height (Feet): 5 Height (Inches): 7.00 Weight (Pounds): 110 Objective General Appearance: WD/WN, alert, thin Neck: supple Cardiovascular: regular rhythm Respiratory/Chest: chest wall non-tender, lungs clear, normal breath sounds Abdomen: normal bowel sounds, non tender, soft, no organomegaly Edema: no edema noted Arm (L), no edema noted Arm (R), no edema noted Leg (L), no edema noted Leg (R), no edema noted Pedal (L), no edema noted Pedal (R), no edema noted Generalized Edema: trace edema Neurologic: alert, responsive ALVARADO LOZANO Oct 28, 2016 14:09
[2016-10-28 14:18] LABS: FERRITIN 1093 ng/mL (10-230)
[2016-10-28] MEDS ORDERED: NS 550ML IV ONE (18:56)
[2016-10-28] MEDS ORDERED: NS 275ml ONE (18:56)
--- NOTE | 2016-10-28 20:38 | Consultation ---
DATE OF CONSULTATION: 10/28/2016 REASON FOR CONSULTATION: I was asked to see this patient by Dr. Jefe Aguayo for evaluation of end-stage renal disease with clotted left forearm Venkata fistula and DVT of the left common femoral vein with presence of a left femoral PermCath. HISTORY OF PRESENT ILLNESS: The patient is a 60-year-old male, a patient of Dr. Aguayo. It is not clear how long he has been on chronic hemodialysis. PAST MEDICAL HISTORY: Includes hypertension, stroke, , chronic obstructive pulmonary disease. There is a history of a schizoaffective disorder. The patient was transferred from a intermediate facility with chest pain. According to the emergency room, he was hypotensive. Initial cardiac enzymes in the emergency room were unremarkable. He did have a potassium of 6 and was obviously in need of dialysis. Venous duplex scanning was carried out and was interpreted as thrombosis of the left common femoral vein where a femoral PermCath was present. Initial laboratory work has revealed a platelet count of 37,000 as well as other abnormalities. The troponin was negative confirming that he did not have myocardial ischemia. PHYSICAL EXAMINATION: On physical examination, there is presence of a left forearm Venkata fistula with multiple aneurysms. The fistula is clotted and that there is no bruit or thrill. There is presence of a left femoral PermCath which appears uninfected. This patient has a dual problem, DVT of the left common femoral in the presence of thrombocytopenia. I feel that before removing the PermCath, his only access for dialysis, we have a Hematology consult to see if low-dose heparin intravenously can be done, it may be that he has a DIC type of problem were heparin would actually be evaluate in elevating the platelet count. When this problem is resolved, the PermCath should be removed and a right jugular PermCath to be placed by Interventional Radiology. At that point, we can decide whether an left upper arm AV fistula using the basilic vein can be carried out. I have ordered vein mapping for this purpose. Thank you for asking me to see in consultation. Mynor Julian M.D. DR: Jessica JOB#: [id number] CC:
--- NOTE | 2016-10-28 20:46 | Nephrology Progress Note ---
Assessment/Plan Problem List: (1) Malnutrition of moderate degree (2) CVA, old, hemiparesis (3) ESRD (end stage renal disease) on dialysis (4) Chest pain (5) DVT (deep venous thrombosis) (6) Bacteremia associated with intravascular line (7) Sepsis Plan dialysis 10/26 uf limited by low normal bp, fluid bolus given 10/27 , coag neg staph in , vanco ordered, dvt thrombocytopenia and studies ordered, would try to avoid ivc filter above femoral dialysis cath, cath may need removal, repeat blood cultures Subjective Constitutional: Reports: weakness HEENT: Reports: no symptoms Genitourinary: Reports: no symptoms Neurologic/Psychiatric: Reports: pre-existing deficit Objective Objective Last 24 Hour Vital Signs Date Time Temp Pulse Resp B/P Pulse Ox O2 Delivery O2 Flow Rate FiO2 10/28/16 17:18 96.6 87 85/38 10/28/16 15:27 96.4 83 19 80/39 98 Room Air 10/28/16 12:00 82 10/28/16 11:26 97.9 87 20 74/37 98 Room Air 10/28/16 08:40 84 83/55 10/28/16 08:02 97.7 84 20 83/55 97 Room Air 10/28/16 08:00 87 10/28/16 04:00 96.8 89 20 82/36 98 Room Air 10/28/16 03:56 91 10/28/16 01:30 90 10/28/16 00:45 96.8 89 20 82/36 98 Room Air 10/27/16 20:51 78 86/49 Intake and Output 10/27/16 10/28/16 19:00 07:00 Intake Total 2643 ml 590 ml Output Total 0 ml Balance 2643 ml 590 ml Intake Oral 370 ml 240 ml IV Total 2273 ml 100 ml Hemodialysis 250 ml Output Urine Total 0 ml # Bowel Movements 1 1 Laboratory Tests 10/28/16 04:00: White Blood Count 6.2, Red Blood Count 2.63L, Hemoglobin 8.0L, Hematocrit 26.2L , Mean Corpuscular Volume 99, Mean Corpuscular Hemoglobin 30.3, Mean Corpuscular Hemoglobin Concent 30.5L, Red Cell Distribution Width 16.7H, Platelet Count 57L, Mean Platelet Volume 8.4, Neutrophils (%) (Auto) , Lymphocytes (%) (Auto) , Monocytes (%) (Auto) , Eosinophils (%) (Auto) , Basophils (%) (Auto) , Differential Total Cells Counted 100, Neutrophils % ( Manual) 82H, Lymphocytes % (Manual) 16L, Monocytes % (Manual) 2, Eosinophils % ( Manual) 0, Basophils % (Manual) 0, Band Neutrophils 0, Platelet Estimate DecreasedL, Platelet Morphology Normal, Hypochromasia 1+, Anisocytosis 1+, Macrocytosis 1+, Reticulocyte Count 1.1, Prothrombin Time 12.1H, Prothromb Time International Ratio 1.2H, Activated Partial Thromboplast Time 35H, Sodium Level 139, Potassium Level 4.4, Chloride Level 102, Carbon Dioxide Level 21, Anion Gap 16H, Blood Urea Nitrogen 35H, Creatinine 7.3H, Estimat Glomerular Filtration Rate 7.7, Glucose Level 110H, Calcium Level 7.4L, Iron Level 29L, Total Iron Binding Capacity 109L, Percent Iron Saturation 27, Unsaturated Iron Binding 80L, Ferritin 1093H, Random Vancomycin Level 25.9, Heparin-PF4 Antibody Screen [Pending], HIV (1&2) Antibody Rapid Negative Height (Feet): 5 Height (Inches): 7.00 Weight (Pounds): 110 General Appearance: no apparent distress, thin EENT: normal ENT inspection Cardiovascular: normal rate, regular rhythm Respiratory/Chest: lungs clear, normal breath sounds Abdomen: non tender, soft, no organomegaly Neurologic: motor weakness LOUIE DÍAZ Oct 28, 2016 20:46
[2016-10-28] MEDS: Atorvastatin 20mg tab ORAL SCH (21:00)
[2016-10-28] MEDS: Donepezil 10mg tab ORAL SCH (21:01)
[2016-10-28] MEDS: Epogen (for ESRD on dialysis) SUBQ SCH (21:52)
[2016-10-28] MEDS ORDERED: Zosyn 2.25gm inj IV SCH (22:45)
[2016-10-28] MEDS ORDERED: Vancomycin 1gm/D5W 275ml IVPB ONE ×2 (23:00)
[2016-10-29] VITALS: BP 133/85
[2016-10-29] MEDS ORDERED: Zosyn 3.375gm inj ONE (00:51)
[2016-10-29] MEDS ORDERED: Zosyn 3.375gm q12h **Extended infusion IVPB SCH ×2 (01:00)
--- NOTE | 2016-10-29 03:29 | Progress Note ---
DATE: 10/28/2016 SUBJECTIVE: The patient has been hypotensive. Fluid boluses have been given. Blood cultures are positive for coag-negative staph. Echocardiogram is notable for vegetation on the aortic valve. OBJECTIVE: VITAL SIGNS: Blood pressure 85/38, pulse 87, and respirations 19. LUNGS: Clear. CARDIAC: Regular rhythm and rate. Normal S1 and S2. A 1/6 systolic ejection murmur. ABDOMEN: Soft. EXTREMITIES: Trace edema. LABORATORY DATA: Laboratories reviewed. IMPRESSION: 1. 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 2. Bacteremia with coagulase-negative Staphylococcus. 3. End-stage renal disease. 4. Sepsis with shock. PLAN: 1. Continue antibiotics. 2. Hydrate. 3. Limit ultrafiltration. 4. Await final cultures. 5. Consider transesophageal echocardiogram. 6. Will need transfer to a tertiary care facility for cardiothoracic evaluation and likely surgery. Vasu Hayes M.D. DR: CONNER JOB#: [id number] CC:
[2016-10-29 04:00] VITALS: BP 100/55
[2016-10-29] MEDS ORDERED: Heparin Sod 1000 units/ml 10ml IV PRN (06:00)
--- NOTE | 2016-10-29 08:24 | Cardiology Report ---
APPROVED REPORT EXAM: Two-dimensional and M-mode echocardiogram with Doppler and color Doppler. INDICATION Angina pectoris M-Mode DIMENSIONS IVSd1.7 (0.7-1.1cm)Left Atrium (MM)4.8 (1.6-4.0cm) LVDd4.7 (3.5-5.6cm)Aortic Root2.8 (2.0-3.7cm) PWd1.0 (0.7-1.1cm)Aortic Cusp Exc.1.8 (1.5-2.0cm) LVDs3.2 (2.5-4.0cm) PWs0.9 cm Normal left ventricular chamber size, systolic function and wall motion. Left ventricular ejection fraction estimated to be 60-65%. Moderate left ventricular hypertrophy. Large posterior pleural effusion. Right cardiac chamber sizes are within normal limits. Moderate left atrial enlargement by 2D. Focal aortic valve sclerosis with adequate cusp excursion Thickened mitral valve leaflets with normal excursion. Mitral annulus and aortic root calcification. Pulmonic valve is well visualized. Normal tricuspid valve structure. IVC is normal in size with physiologic collapse. Highly mobile echodensity seen on right coronary cusp sspiciosu for vegatation findings discussed with dr rutledge 10/28/2016 A color flow and spectral Doppler study was performed and revealed: Moderate aortic regurgitation. Moderate mitral regurgitation. Normal left ventricular function. Mild tricuspid regurgitation. Tricuspid systolic velocities suggests peak right ventricular systolic pressure of 32 mmHg Pulmonic regurgitation present.
[2016-10-29 08:37] VITALS: BP 82/34
--- NOTE | 2016-10-29 08:42 | General Progress Note ---
Assessment/Plan Problem List: (1) Unstable angina ICD Codes: I20.0 - Unstable angina SNOMED: 4339571 (2) ESRD (end stage renal disease) on dialysis ICD Codes: N18.6 - End stage renal disease; Z99.2 - Dependence on renal dialysis SNOMED: 477801700 (3) Chest pain ICD Codes: R07.9 - Chest pain, unspecified SNOMED: 23382845 (4) Renal failure ICD Codes: N19 - Unspecified kidney failure SNOMED: 80265533 (5) Hypotension ICD Codes: I95.9 - Hypotension, unspecified SNOMED: 49445547 (6) Endocarditis ICD Codes: I38 - Endocarditis, valve unspecified SNOMED: 692489, 65090051 Status: stable, not improved Assessment/Plan iv abx ID eval possible WILLIS. HD per renal possible transfer to [facility] for CT surgery eval bed rest for dvt. cannot put ivc filter due to groin perm cath. plts too low to heparinize status and poc d/w pt with [employer] Subjective ROS Limited/Unobtainable: No Constitutional: Reports: malaise, weakness HEENT: Reports: no symptoms Cardiovascular: Reports: no symptoms Respiratory: Reports: no symptoms Gastrointestinal/Abdominal: Reports: no symptoms Genitourinary: Reports: no symptoms Neurologic/Psychiatric: Reports: no symptoms Endocrine: Reports: no symptoms Hematologic/Lymphatic: Reports: anemia Allergies: Coded Allergies: No Known Allergies (Verified , 10/28/06) All Systems: reviewed and negative except above Subjective TTE shows large vegetation on aortic valve. pt w/o complaints. no cp/sob. + blood cultures noted. on iv abx ID eval called. cards noted Objective Last 24 Hour Vital Signs Date Time Temp Pulse Resp B/P Pulse Ox O2 Delivery O2 Flow Rate FiO2 10/29/16 04:00 97.0 9 16 100/55 10/29/16 04:00 87 10/29/16 00:00 97.3 94 14 133/85 95 Room Air 10/29/16 00:00 94 10/28/16 20:00 97.5 83 18 90/48 98 10/28/16 20:00 91 10/28/16 17:18 96.6 87 85/38 10/28/16 16:00 83 10/28/16 15:27 96.4 83 19 80/39 98 Room Air 10/28/16 12:00 82 10/28/16 11:26 97.9 87 20 74/37 98 Room Air 10/28/16 08:40 84 83/55 Intake and Output 10/28/16 10/29/16 19:00 07:00 Intake Total 410.0 ml Output Total 2 ml Balance 408.0 ml Intake Oral 300 ml IV Total 110.0 ml Output Urine Total 2 ml # Bowel Movements 1 2 Height (Feet): 5 Height (Inches): 7.00 Weight (Pounds): 110 Objective General Appearance: WD/WN, alert, thin Neck: supple Cardiovascular: regular rhythm Respiratory/Chest: chest wall non-tender, lungs clear, normal breath sounds Abdomen: normal bowel sounds, non tender, soft, no organomegaly Edema: no edema noted Arm (L), no edema noted Arm (R), no edema noted Leg (L), no edema noted Leg (R), no edema noted Pedal (L), no edema noted Pedal (R), no edema noted Generalized Edema: trace edema Neurologic: alert, responsive ALVARADO LOZANO Oct 29, 2016 08:42
[2016-10-29] MEDS: Carvedilol 25mg Tab ORAL SCH ×2 (08:46→21:00)
[2016-10-29] MEDS: Sensipar 30mg Tab ORAL SCH ×2 (08:55→09:00)
[2016-10-29] MEDS: Aspirin EC 81mg tab ORAL SCH ×2 (08:56→09:00)
[2016-10-29] MEDS: Amiodarone 200mg tab ORAL SCH ×2 (08:56→09:00)
[2016-10-29] MEDS: Lanthanum 1000mg tab ORAL SCH ×2 (08:56→09:00)
[2016-10-29] MEDS: Nephrovite tab ORAL SCH ×2 (08:56→09:00)
[2016-10-29 10:02] LABS: MEAN CORPUSCULAR HEMOGLOBIN 29.2 PG (27.0-31.0); MEAN CORPUSCULAR HGB CONC 30.1 G/DL (32.0-36.0); MEAN CORPUSCULAR VOLUME 97 FL (80-99); MEAN PLATELET VOLUME 9.1 FL (6.5-10.1); PLATELET COUNT 54 K/UL (150-450); RED BLOOD COUNT 3.56 M/UL (4.70-6.10); RED CELL DISTRIBUTION WIDTH 17.5 % (11.6-14.8); WHITE BLOOD COUNT 7.5 K/UL (4.8-10.8)
--- NOTE | 2016-10-29 10:05 | Diagnostic Imaging Report ---
Indication: Abdominal pain, abnormal renal function tests, splenomegaly Technique: Mccarty-scale and duplex images of the upper abdomen were obtained Comparison: 10/25/2016 CT abdomen and pelvis Findings: There is trace ascites fluid present. There is trace right pleural effusion. Gallbladder is negative for stones. Gallbladder wall is thickened, measuring 5 mm thick. No pericholecystic fluid. Sonographic Morgan's sign is negative. Common bile duct measures 5 mm in diameter. No intrahepatic biliary ductal dilatation. Liver demonstrates normal echogenicity, no focal abnormality. It is somewhat enlarged. A calcification is seen within the liver. This is probably arterial, as no parenchymal calcifications are seen on recent CT. Portal vein and hepatic veins are patent.. Pancreas is unremarkable. The spleen is enlarged, measuring 22.5 cm long axis dimension. There is a 15 mm hypoechoic area within the anterior spleen which is not visible on recent CT. Left kidney measures 9.7 cm in length. Right kidney measures I.8 cm length. Both kidneys demonstrate markedly increased echogenicity. There is no hydronephrosis. There are small renal cysts on the left. Non-aneurysmal abdominal aorta. Impression: Splenomegaly, also described on recent CT Nonspecific 1.5 cm low-attenuation lesion within the anterior spleen, not visible on recent CT. Differential considerations include complex cyst, hemangioma, neoplasm, among other possibilities. Recommend contrast CT for further evaluation when patient's condition permits Trace ascites Mild hepatomegaly Trace right pleural effusion Negative for gallstones or dilated ducts Gallbladder wall thickening. Most likely on the basis of hemodynamic derangements causing the ascites and pleural fluid. However, acute acalculous cholecystitis cannot be completely ruled out, and further evaluation with hepatobiliary nuclear scan should be considered if there is high clinical suspicion Atrophic echogenic bilateral kidneys, consistent with history of chronic renal disease Incidental finding small left renal cysts
[2016-10-29 11:10] LABS: BAND NEUTROPHILS % (MANUAL) 0 % (0-8); BASOPHILS % (MANUAL) 0 % (0-2); EOSINOPHILS % (MANUAL) 1 % (0-3); LYMPHOCYTES % (MANUAL) 13 % (20-45); NEUTROPHILS % (MANUAL) 80 % (45-75); PLATELET ESTIMATE DECREASED; PLATELET MORPHOLOGY NORMAL; TOTAL CELLS COUNTED 100
[2016-10-29 11:11] LABS: ANISOCYTOSIS 1+; HYPOCHROMASIA 1+; MACROCYTES 1+
[2016-10-29 11:37] VITALS: BP 91/40
--- NOTE | 2016-10-29 11:39 | Cardiology Report ---
APPROVED REPORT EKG Measurement Heart [id number] Normal sinus rhythm Prolonged QT Abnormal ECG
--- NOTE | 2016-10-29 12:56 | Nephrology Progress Note ---
Assessment/Plan Problem List: (1) Malnutrition of moderate degree (2) CVA, old, hemiparesis (3) ESRD (end stage renal disease) on dialysis (4) Chest pain (5) DVT (deep venous thrombosis) (6) Bacteremia associated with intravascular line (7) Sepsis Plan dialysis 10/29 uf limited by low normal bp, fluid bolus given 10/27 , coag neg staph in , vanco ordered, dvt thrombocytopenia and studies ordered, would try to avoid ivc filter above femoral dialysis cath, cath may need removal, repeat blood cultures 10/29 Subjective Constitutional: Reports: weakness HEENT: Reports: no symptoms Genitourinary: Reports: no symptoms Neurologic/Psychiatric: Reports: pre-existing deficit Objective Objective Last 24 Hour Vital Signs Date Time Temp Pulse Resp B/P Pulse Ox O2 Delivery O2 Flow Rate FiO2 10/29/16 11:37 97.3 89 20 91/40 98 Room Air 10/29/16 08:46 90 82/34 10/29/16 08:37 97.5 90 18 82/34 98 Room Air 10/29/16 04:00 97.0 9 16 100/55 10/29/16 04:00 87 10/29/16 00:00 97.3 94 14 133/85 95 Room Air 10/29/16 00:00 94 10/28/16 20:00 97.5 83 18 90/48 98 10/28/16 20:00 91 10/28/16 17:18 96.6 87 85/38 10/28/16 16:00 83 10/28/16 15:27 96.4 83 19 80/39 98 Room Air Intake and Output 10/28/16 10/29/16 19:00 07:00 Intake Total 410.0 ml Output Total 2 ml Balance 408.0 ml Intake Oral 300 ml IV Total 110.0 ml Output Urine Total 2 ml # Bowel Movements 1 2 Laboratory Tests 10/29/16 09:30: White Blood Count 7.5, Red Blood Count 3.56L, Hemoglobin 10.4L, Hematocrit 34.6# L, Mean Corpuscular Volume 97, Mean Corpuscular Hemoglobin 29.2, Mean Corpuscular Hemoglobin Concent 30.1L, Red Cell Distribution Width 17.5H, Platelet Count 54L, Mean Platelet Volume 9.1, Neutrophils (%) (Auto) , Lymphocytes (%) (Auto) , Monocytes (%) (Auto) , Eosinophils (%) (Auto) , Basophils (%) (Auto) , Differential Total Cells Counted 100, Neutrophils % ( Manual) 80H, Lymphocytes % (Manual) 13L, Monocytes % (Manual) 6, Eosinophils % ( Manual) 1, Basophils % (Manual) 0, Band Neutrophils 0, Platelet Estimate DecreasedL, Platelet Morphology Normal, Hypochromasia 1+, Anisocytosis 1+, Macrocytosis 1+, Vitamin B12 Level 699 Height (Feet): 5 Height (Inches): 7.00 Weight (Pounds): 110 General Appearance: no apparent distress, thin EENT: PERRL/EOMI Neck: normal alignment Cardiovascular: normal rate, regular rhythm Respiratory/Chest: lungs clear Abdomen: non tender, soft Extremities: other - no edema Neurologic: motor weakness LOUIE DÍAZ Oct 29, 2016 12:56
[2016-10-29 16:00] VITALS: BP 109/66
[2016-10-29 16:41] LABS: CHLORIDE 101 mEQ/L (98-107); POTASSIUM 5.2 mEQ/L (3.4-4.9); SODIUM 139 mEQ/L (135-145)
[2016-10-29 16:42] LABS: ANION GAP 20 (5-15); CALCIUM 7.5 mg/dL (8.6-10.2); CARBON DIOXIDE 18 mEQ/L (20-30); CREATININE 8.4 mg/dL (0.7-1.2); GLOMERULAR FILTRATION RATE 6.5 mL/min (>60); LACTATE DEHYDROGENASE 392 U/L (135-225)
--- NOTE | 2016-10-29 16:57 | General Progress Note ---
Assessment/Plan Assessment/Plan Consultation note is not yet in system Assessment: # DVT of the left common femoral vein with presence of a left femoral PermCath. Agree to withhold anticoagulation given low plts, also patient does not want IVC filter, agree to continue to monitor # Thrombocytopenia is 2/2 splenomegaly, she has had same plt count since 2006, have reviewed record, no HIV or hepatitis hx # Anemia 2/2 chronic disease (kidney disease) # Nonspecific 1.5 cm low-attenuation lesion within the anterior spleen # ESRD on HD 3x a week # Hypertension # Stroke # Chronic obstructive pulmonary disease # Schizoaffective disorder. Recs: # No heparin, plavix or aspirin for this patient until platelet count improves # May consider a IVC filter given thrombocytopenia if patient willing and permacath out # Monitor closely vitals, for PE # Anemia w/u has been reviewed, does not require iron # Agree with use of epogen # Appreciate cardiology and pulmonary recs # May be transferred to [facility] for CT surg eval Thank you, Samir Watkins MD Subjective Constitutional: Reports: no symptoms HEENT: Reports: no symptoms Cardiovascular: Reports: no symptoms Respiratory: Reports: no symptoms Gastrointestinal/Abdominal: Reports: poor fluid intake Genitourinary: Reports: no symptoms Neurologic/Psychiatric: Reports: no symptoms Endocrine: Reports: no symptoms Hematologic/Lymphatic: Reports: anemia Allergies: Coded Allergies: No Known Allergies (Verified , 10/28/06) Subjective stable, no complaints, no bleeding noted today Objective Last 24 Hour Vital Signs Date Time Temp Pulse Resp B/P Pulse Ox O2 Delivery O2 Flow Rate FiO2 10/29/16 11:37 97.3 89 20 91/40 98 Room Air 10/29/16 08:46 90 82/34 10/29/16 08:37 97.5 90 18 82/34 98 Room Air 10/29/16 04:00 97.0 9 16 100/55 10/29/16 04:00 87 10/29/16 00:00 97.3 94 14 133/85 95 Room Air 10/29/16 00:00 94 10/28/16 20:00 97.5 83 18 90/48 98 10/28/16 20:00 91 10/28/16 17:18 96.6 87 85/38 Intake and Output 10/28/16 10/29/16 19:00 07:00 Intake Total 410.0 ml Output Total 2 ml Balance 408.0 ml Intake Oral 300 ml IV Total 110.0 ml Output Urine Total 2 ml # Bowel Movements 1 2 Laboratory Tests 10/29/16 09:30: White Blood Count 7.5, Red Blood Count 3.56L, Hemoglobin 10.4L, Hematocrit 34.6# L, Mean Corpuscular Volume 97, Mean Corpuscular Hemoglobin 29.2, Mean Corpuscular Hemoglobin Concent 30.1L, Red Cell Distribution Width 17.5H, Platelet Count 54L, Mean Platelet Volume 9.1, Neutrophils (%) (Auto) , Lymphocytes (%) (Auto) , Monocytes (%) (Auto) , Eosinophils (%) (Auto) , Basophils (%) (Auto) , Differential Total Cells Counted 100, Neutrophils % ( Manual) 80H, Lymphocytes % (Manual) 13L, Monocytes % (Manual) 6, Eosinophils % ( Manual) 1, Basophils % (Manual) 0, Band Neutrophils 0, Platelet Estimate DecreasedL, Platelet Morphology Normal, Hypochromasia 1+, Anisocytosis 1+, Macrocytosis 1+, Sodium Level 139, Potassium Level 5.2H, Chloride Level 101, Carbon Dioxide Level 18L, Anion Gap 20H, Blood Urea Nitrogen 49H, Creatinine 8.4H, Estimat Glomerular Filtration Rate 6.5, Glucose Level 120H, Calcium Level 7.5L, Lactate Dehydrogenase 392H, Vitamin B12 Level 699 Height (Feet): 5 Height (Inches): 7.00 Weight (Pounds): 110 General Appearance: no apparent distress EENT: TMs normal Neck: normal alignment Cardiovascular: normal rate Respiratory/Chest: normal breath sounds Abdomen: soft Extremities: normal range of motion Edema: 1+ Leg (L), 1+ Leg (R) Edema: mild edema Neurologic: alert Skin: warm/dry Samir Watkins Oct 29, 2016 16:57
--- NOTE | 2016-10-29 18:59 | Consultation ---
DATE OF CONSULTATION: 10/29/2016 INFECTIOUS DISEASE CONSULTATION REFERRING PHYSICIAN: Jefe Aguayo M.D. REASON FOR CONSULTATION: Endocarditis. HISTORY OF PRESENTING ILLNESS: This is a 60-year-old gentleman with history of hypertension, atrial fibrillation, CVA, COPD, renal failure, on dialysis, and schizoaffective disorder who came in with chest pain. He was found to be hypotensive. He was also thought to have a possible aortic valve endocarditis and an Infectious Diseases consultation has been obtained for antibiotics. PAST MEDICAL HISTORY: 1. History of hypertension. 2. CVA. 3. Atrial fibrillation. 4. COPD. 5. Schizoaffective disorder. 6. Renal failure, on dialysis. 7. Status post right arm fistula placement. MEDICATIONS: As an inpatient, the patient is on heparin, Zosyn, IV vancomycin, donepezil, atorvastatin, Epogen, amiodarone, Coreg, lanthanum, Sensipar, lamotrigine, Protonix, vitamin D, folic acid, aspirin, Renvela, Tylenol, Dulcolax, Benadryl and lactulose. ALLERGIES: No known drug allergies. SOCIAL HISTORY: He has a prior history of smoking. No history of alcohol or drug use. FAMILY HISTORY: Noncontributory. REVIEW OF SYSTEMS: Unable to obtain currently. PHYSICAL EXAMINATION: VITAL SIGNS: Temperature of 97.5 degrees, T-max of 97.9 degrees, pulse of 90, respiratory of 18, blood pressure 82/34, and O2 saturation of 98%. HEENT: Pupils are equally reactive to light and accommodation. Mouth appears clean without thrush. NECK: Supple. No adenopathy. No JVD. CARDIOVASCULAR: Regular rate and rhythm. No murmurs. LUNGS: Clear to auscultation bilaterally. No crackles. No wheezes. ABDOMEN: Soft and nontender. No organomegaly. EXTREMITIES: No cyanosis, no clubbing, and no edema. LABORATORY AND DIAGNOSTIC DATA: White count 7.5, hemoglobin 10.4, hematocrit 34.6, MCV 97, and platelet count of 54,000 with neutrophils of 80%. Sodium 139, potassium 4.4, chloride 102, bicarbonate 21, BUN 35, creatinine 7.3 and glucose of 110. Calcium 7.4. Total bilirubin 0.4. AST 10, ALT 5 and alkaline phosphatase 105. Total protein 5.7. Albumin 2.6. Lipase of 9. Hepatitis A IgM negative. Hepatitis B surface antigen negative. Hepatitis B core IgM negative. Hepatitis C antibody 0.2. HIV negative. Blood culture growing coagulase negative Staph. C-17 nasal swab was negative for MRSA. C-17 rectal swab was negative for VRE. Chest x-ray was unremarkable. CT abdomen and pelvis showing massive splenomegaly, mild anasarca with trace ascites, small bilateral pleural effusions, and thickening of the sigmoid colon with colitis not excludable. A 2D echo showing aortic valve sclerosis, tiny mobile echodensity in the right coronary cusp, suspicious for vegetation. Abdominal ultrasound showing splenomegaly. ASSESSMENT: 1. This is a 60-year-old gentleman with history of atrial fibrillation, hypertension, cerebrovascular accident and renal failure, who comes in and is found to have a possible aortic valve endocarditis with coagulase-negative Staph. 2. Hypertension. 3. Atrial fibrillation. 4. Chronic obstructive pulmonary disease. PLAN: 1. Continue IV vancomycin. 2. Agree with CT Surgery evaluation. 3. Discontinue Zosyn. 4. We will follow up cultures and adjust antibiotics accordingly. I would like to thank, Dr. Aguayo, for this consultation. Ramon Gaviria M.D. DR: DARSHANA JOB#: [id number] CC: Jefe Aguayo M.D.
--- NOTE | 2016-10-29 19:29 | Consultation ---
DATE OF CONSULTATION: NOTE: VERY POOR AUDIO QUALITY HEMATOLOGY/ONCOLOGY CONSULTATION REFERRING PHYSICIAN: Jefe Aguayo M.D. REASON FOR CONSULTATION: Evaluation of thrombocytopenia and anemia. IDENTIFYING DATA: The patient is a pleasant 60-year-old male with past medical history significant for end-stage renal disease, on hemodialysis as well as cerebrovascular accident with left hemiparesis, history of hypertension, paroxysmal atrial fibrillation, COPD, hyperlipidemia who was [facility] jail, presented to the ER initially with chest pain. The patient also had hypertension. He was noted to have a platelet count of approximately 50,000 to 60,000 as well as anemia. Hematology Services was consulted. The patient presented again with chest pain, was seen by Cardiology service, ACS syndrome to be ruled out. At this time, the patient . PAST MEDICAL HISTORY: 1. End-stage renal disease, on hemodialysis. 2. Cerebrovascular accident with left hemiparesis. 3. History of nonfunctional left . 4. Hypertension. 5. Hyperlipidemia. 6. Paroxysmal atrial fibrillation. 7. Anemia of chronic disease. 8. Anemia of kidney disease. PAST SURGICAL HISTORY: Has been reviewed. ALLERGIES: No known drug allergies. SOCIAL HISTORY: 50 years, alcohol consumption, stopped five years ago. MEDICATIONS: Currently, he is on Vigamox , amiodarone. aspirin, Tylenol, . FAMILY HISTORY: Difficult to obtain. REVIEW OF SYSTEMS: Constitutional: No fever, no chills, or night sweats. Skin: No rashes, lumps, or itching. HEENT: No headache, hearing, or vision changes. Breasts: No lumps, pain, or discharge. Pulmonary: No cough, sputum, or shortness of breath. Cardiovascular: No chest pain, tightness, or palpitations. Gastrointestinal: No nausea, vomiting, or diarrhea. Genitourinary: No dysuria, frequency, or urgency. Musculoskeletal: No joint swelling, muscle pain, or trauma. PHYSICAL EXAMINATION: GENERAL: No acute distress. VITAL SIGNS: Temperature 97.9 degrees Fahrenheit, pulse rate 87, respiratory rate 12, blood pressure 117/74, and O2 saturation 98% on room air. PULMONARY: Decreased breath sounds. CARDIOVASCULAR: Regular rate and rhythm. No S3 or S4. ABDOMEN: Soft, nontender, and nondistended. EXTREMITIES: A 1+ edema. LABORATORY AND DIAGNOSTIC DATA: WBC , hemoglobin 8, hematocrit 26, platelet count 57,000. Yesterday was 37,000. BUN 35 and creatinine . AST and ALT 10 and 5. Total protein . Serology reviewed. Hepatitis panel is negative as well as imaging. CAT scan of the abdomen and pelvis shows nonspecific , findings suggestive of calcification of left renal pelvis. calcification. ASSESSMENT AND PLAN: 1. Thrombocytopenia secondary to splenomegaly. 2. Patient any evidence of cirrhosis. 3. Continue to monitor the patient bleeding. 4. Anemia secondary to kidney disease. 5. Anemia secondary to chronic disease. 6. Coagulopathy, potentially secondary to cirrhosis secondary to splenomegaly. 7. End-stage renal disease, on hemodialysis. 8. Nonfunctional 9. Cerebrovascular accident. 10. Anemia workup has been ordered. 11. Hemoglobin goal is above 7. 12. Peripheral smear to be reviewed. 13. Platelet goal of above 20,000. 14. Ultrasound of the abdomen reviewed to rule out cirrhosis. This patient continues to have evidence of splenomegaly. 15. test ordered. 16. aspirin, Plavix and heparin. 17. Antibiotics to continue. Medications reviewed. 18. Continue Epogen per Renal Service. 19. Discussed with staff. 20. Continue to follow from Hematology perspective. Thank you, Dr. Jefe Aguayo, for this kind referral. Please do not hesitate to contact me if you have any further questions. Samir Watkins M.D. DR: BEBO JOB#: [id number] CC:
[2016-10-29 20:00] VITALS: BP 106/45
[2016-10-29] MEDS: Donepezil 10mg tab ORAL SCH (20:19)
[2016-10-29] MEDS: Atorvastatin 20mg tab ORAL SCH (20:19)
--- NOTE | 2016-10-29 23:24 | Diagnostic Imaging Report ---
APPROVED REPORT CPT Code: 70264 Present Symptoms Lower Extremity Pain: Bilateral RIGHT LEG: Venous imaging reveals a patent deep venous system. There is no evidence of thrombus within the femoral, popliteal or tibial segments. The greater saphenous vein is also within normal limits. Doppler indicates normal spontaneous flow within these segments. LEFT LEG: Venous imaging reveals acute thrombus in the common femoral vein. Imaging also reveals patency of the femoral, popliteal and calf veins. The greater saphenous vein is within normal limits. Doppler indicates normal spontaneous flow within these segments. RICHARD Scott notified @ [id number]
[2016-10-30] VITALS: BP 153/58
--- NOTE | 2016-10-30 00:59 | Progress Note ---
DATE: 10/29/2016 CARDIOLOGY PROGRESS NOTE SUBJECTIVE: The patient remains on IV antibiotics. Echocardiogram was reviewed. There is evidence of an aortic valve vegetation suggesting endocarditis. The patient's repeat blood cultures have been drawn. OBJECTIVE: VITAL SIGNS: Blood pressure 82/34 to 109/66, heart rate 92, respiratory 21, afebrile. NECK: Supple. LUNGS: Clear. CARDIAC: Regular rhythm and rate. Normal S1 and S2. A 1/4 diastolic murmur. ABDOMEN: Soft. EXTREMITIES: With trace edema. Right groin PermCath. LABORATORY DATA: Potassium 5.2, BUN 49, creatinine 8.4, white count 7.5, and hemoglobin 10.4. IMPRESSION: 1. Probable aortic valve endocarditis. 2. Sepsis with shock, improving. 3. End-stage renal disease. 4. Noncardiac chest pain, now with stable angina. 5. Deep vein thrombosis of right lower extremity. PLAN: Continue antibiotics. Await surveillance blood cultures. Hold mobilization due to the DVT and inability to place IVC filter. Once more hemodynamically stable. The patient may be able to continue complete antibiotics at the care home with a WILLIS to be performed as an outpatient and cardiothoracic surgery evaluation to follow. Vasu Hayes M.D. DR: LUZ JOB#: [id number] CC:
[2016-10-30 04:00] VITALS: BP 110/56
[2016-10-30] MEDS ORDERED: Vancomycin 500mg in D5W 110ml IVPB ONE (06:00)
[2016-10-30 08:26] VITALS: BP 97/40
[2016-10-30] MEDS: Carvedilol 25mg Tab ORAL SCH ×2 (08:42→20:10)
[2016-10-30] MEDS: Lanthanum 1000mg tab ORAL SCH (08:44)
--- NOTE | 2016-10-30 09:02 | Nephrology Progress Note ---
Assessment/Plan Problem List: (1) Malnutrition of moderate degree (2) CVA, old, hemiparesis (3) ESRD (end stage renal disease) on dialysis (4) Chest pain (5) DVT (deep venous thrombosis) (6) Bacteremia associated with intravascular line (7) Sepsis Plan dialysis 10/29 uf limited by low normal bp, fluid bolus given 10/27 , coag neg staph in , vanco ordered, dvt thrombocytopenia and studies ordered, would try to avoid ivc filter above femoral dialysis cath, cath may need removal, repeat blood cultures 10/29 so far negative Subjective Constitutional: Reports: weakness HEENT: Reports: no symptoms Genitourinary: Reports: no symptoms Neurologic/Psychiatric: Reports: no symptoms Objective Objective Last 24 Hour Vital Signs Date Time Temp Pulse Resp B/P Pulse Ox O2 Delivery O2 Flow Rate FiO2 10/30/16 08:42 91 97/40 10/30/16 08:26 97.7 91 20 97/40 96 Room Air 10/30/16 04:00 98.1 93 20 110/56 98 Room Air 10/30/16 04:00 96 10/30/16 00:00 97.7 97 18 153/58 96 Room Air 10/30/16 00:00 91 10/29/16 21:00 87 106/45 10/29/16 20:00 97.0 87 22 106/45 98 Room Air 10/29/16 20:00 96 10/29/16 17:08 Room Air 10/29/16 17:03 Room Air 10/29/16 16:00 97.3 92 21 109/66 99 Room Air 10/29/16 16:00 83 10/29/16 12:00 88 10/29/16 11:37 97.3 89 20 91/40 98 Room Air Intake and Output 10/29/16 10/30/16 19:00 07:00 Intake Total 240 ml 380 ml Balance 240 ml 380 ml Intake Oral 240 ml 380 ml # Voids 5 # Bowel Movements 3 4 Laboratory Tests 10/29/16 09:30: White Blood Count 7.5, Red Blood Count 3.56L, Hemoglobin 10.4L, Hematocrit 34.6# L, Mean Corpuscular Volume 97, Mean Corpuscular Hemoglobin 29.2, Mean Corpuscular Hemoglobin Concent 30.1L, Red Cell Distribution Width 17.5H, Platelet Count 54L, Mean Platelet Volume 9.1, Neutrophils (%) (Auto) , Lymphocytes (%) (Auto) , Monocytes (%) (Auto) , Eosinophils (%) (Auto) , Basophils (%) (Auto) , Differential Total Cells Counted 100, Neutrophils % ( Manual) 80H, Lymphocytes % (Manual) 13L, Monocytes % (Manual) 6, Eosinophils % ( Manual) 1, Basophils % (Manual) 0, Band Neutrophils 0, Platelet Estimate DecreasedL, Platelet Morphology Normal, Hypochromasia 1+, Anisocytosis 1+, Macrocytosis 1+, Sodium Level 139, Potassium Level 5.2H, Chloride Level 101, Carbon Dioxide Level 18L, Anion Gap 20H, Blood Urea Nitrogen 49H, Creatinine 8.4H, Estimat Glomerular Filtration Rate 6.5, Glucose Level 120H, Calcium Level 7.5L, Lactate Dehydrogenase 392H, Vitamin B12 Level 699 10/30/16 07:23: Phosphorus Level 3.3 Height (Feet): 5 Height (Inches): 7.00 Weight (Pounds): 121 General Appearance: no apparent distress, alert, thin EENT: normal ENT inspection Neck: normal alignment Cardiovascular: normal rate, regular rhythm Respiratory/Chest: lungs clear Abdomen: non tender Neurologic: abnormal rac specialist II-XII, motor weakness LOUIE DÍAZ Oct 30, 2016 09:02
[2016-10-30] MEDS: Nephrovite tab ORAL SCH (09:12)
[2016-10-30] MEDS: Aspirin EC 81mg tab ORAL SCH (09:12)
[2016-10-30] MEDS: Sensipar 30mg Tab ORAL SCH (09:12)
[2016-10-30] MEDS: Amiodarone 200mg tab ORAL SCH (09:12)
[2016-10-30 11:49] VITALS: BP 93/40
--- NOTE | 2016-10-30 13:20 | Diagnostic Imaging Report ---
APPROVED REPORT CPT Code: G0365 Present Symptoms Comments: Hx of Transposition and AVF Vein Measurements(cm) Cephalic Basilic Right LeftRight Left Upper Arm0.3Mid Upper Arm3.6 Mid Upper Arm3.3Antecubital Fossa3.0 2.5Upper Forearm1.4 Antecubital Fossa1.5Wrist VEIN MAPPING: The right entire arm and left upper arm basilic veins were imaged and measured to evaluate as a potential graft for dialysis catheter insertion. The right and left cephalic veins were thrombosed. BILATERAL UPPER EXTREMITY: Imaging reveals patency of the internal jugular, subclavian, axillary and brachial veins. Doppler indicates normal spontaneous flow within these venous segments, bilaterally. 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 Imaging also reveals a partially occluded arterio-venous fistula at the proximal right forearm level.
--- NOTE | 2016-10-30 15:41 | Infectious Diseases Prog Note ---
Assessment/Plan Assessment/Plan A: Infective endocarditis of Aortic valve Bacteremia with CoNS ESRD on HD A Fibrillation HPN Aortic regurgitation Anemia P:continue IV Vancomycin Subjective ROS Limited/Unobtainable: No Cardiovascular: Reports: no symptoms Gastrointestinal/Abdominal: Reports: no symptoms Genitourinary: Reports: no symptoms Musculoskeletal: Reports: other - right shoulder, pain Allergies: Coded Allergies: No Known Allergies (Verified , 10/28/06) Objective Vital Signs Last 24 Hour Vital Signs Date Time Temp Pulse Resp B/P Pulse Ox O2 Delivery O2 Flow Rate FiO2 10/30/16 12:00 95 10/30/16 11:49 97.7 95 20 93/40 97 Room Air 10/30/16 08:42 91 97/40 10/30/16 08:26 97.7 91 20 97/40 96 Room Air 10/30/16 08:00 89 10/30/16 04:00 98.1 93 20 110/56 98 Room Air 10/30/16 04:00 96 10/30/16 00:00 97.7 97 18 153/58 96 Room Air 10/30/16 00:00 91 10/29/16 21:00 87 106/45 10/29/16 20:00 97.0 87 22 106/45 98 Room Air 10/29/16 20:00 96 10/29/16 17:08 Room Air 10/29/16 17:03 Room Air 10/29/16 16:00 97.3 92 21 109/66 99 Room Air 10/29/16 16:00 83 Height (Feet): 5 Height (Inches): 7.00 Weight (Pounds): 121 General Appearance: no acute distress HEENT: mucous membranes moist Respiratory/Chest: lungs clear Cardiovascular: normal rate Abdomen: soft, non tender Extremities: no edema, other - R arm AV fistula Microbiology Date/Time Source Procedure Growth Status 10/28/16 22:35 Blood Blood Culture - Preliminary NO GROWTH AFTER 24 HOURS Resulted 10/28/16 22:30 Blood Blood Culture - Preliminary NO GROWTH AFTER 24 HOURS Resulted Laboratory Tests Test 10/30/16 07:23 Phosphorus Level 3.3 mg/dL (2.5-4.8) Current Medications Medications (Trade) Dose Ordered Sig/Maryellen Route PRN Reason Start Time Stop Time Status Last Admin Dose Admin Acetaminophen (Tylenol) 650 mg EVERY 4 HOURS PRN ORAL Mild Pain (Pain Scale 1-3) 10/25/16 10:30 11/24/16 10:29 10/28/16 21:01 Acetaminophen (Tylenol) 650 mg EVERY 4 HOURS PRN ORAL FEVER 10/25/16 10:30 11/24/16 10:29 Albumin Human (Albumisol) 100 ml @ 200 mls/hr PRN PRN IV sbp<90 during hd 10/31/16 09:15 10/31/16 23:59 Amiodarone HCl (Cordarone) 200 mg DAILY ORAL 10/25/16 12:30 11/24/16 12:29 10/30/16 09:12 Aspirin (Ecotrin) 81 mg DAILY ORAL 10/25/16 12:00 11/24/16 11:59 10/30/16 09:12 Atorvastatin Calcium (Lipitor) 20 mg BEDTIME ORAL 10/25/16 21:00 11/24/16 20:59 10/29/16 20:19 Bisacodyl (Dulcolax) 10 mg DAILY PRN RECTAL Constipation 10/25/16 10:30 11/24/16 10:29 Carvedilol (Coreg) 25 mg Q12HR ORAL 10/25/16 12:30 11/24/16 12:29 10/25/16 21:43 Cinacalcet (Sensipar) 60 mg DAILY ORAL 10/25/16 12:30 11/24/16 12:29 10/30/16 09:12 Diphenhydramine HCl (Benadryl) 25 mg BEDTIME PRN ORAL Itching 10/25/16 10:30 11/24/16 10:29 Donepezil HCl (Aricept) 10 mg BEDTIME ORAL 10/25/16 21:00 11/24/16 20:59 10/29/16 20:19 Epoetin Collin (Procrit (for ESRD on dialysis)) 5,000 units FRI-FRI-FRI SUBQ 10/25/16 21:00 11/24/16 20:59 10/28/16 21:52 Heparin Sodium (Porcine) (Heparin Sod 1000 units/ml 10ml) 500 unit ONCE PRN IV FOR HD USE ONLY 10/31/16 09:15 10/31/16 23:59 Lactulose (Cephulac) 20 gm EVERY 6 HOURS PRN ORAL Constipation 10/25/16 10:30 11/24/16 10:29 Lamotrigine (LaMICtal) 25 mg DAILY ORAL 10/25/16 12:30 11/24/16 12:29 10/30/16 09:12 Lanthanum Carbonate (Fosrenol) 1,000 mg DAILY ORAL 10/25/16 12:30 11/24/16 12:29 10/27/16 09:00 Pantoprazole (Protonix) 40 mg DAILY ORAL 10/25/16 12:30 11/24/16 12:29 10/30/16 09:12 Sevelamer Carbonate (Renvela) 800 mg TIAC ORAL 10/25/16 12:00 11/24/16 11:59 10/30/16 11:36 Sodium Chloride 1,000 ml @ 500 mls/hr Q2H PRN IVLG sbp<90 during hd 10/31/16 09:02 10/31/16 23:59 Vancomycin HCl 1 ea 1 ea DAILY PRN MISC Per rx protocol 10/27/16 14:30 11/26/16 14:29 Vitamin B Complex/ Vit C/Folic Acid (Nephrovite) 1 tab DAILY ORAL 10/25/16 12:30 11/24/16 12:29 10/30/16 09:12 PAVEL OSEI Oct 30, 2016 15:41
[2016-10-30 16:00] VITALS: BP 91/41
--- NOTE | 2016-10-30 18:22 | General Progress Note ---
Assessment/Plan Assessment/Plan Assessment: # DVT of the left common femoral vein with presence of a left femoral PermCath. Agree that best solution would be placement of IVC filter, however patient currently is not a candidate # Thrombocytopenia is 2/2 splenomegaly, she has had same plt count since 2006, have reviewed record, no HIV or hepatitis hx # Anemia 2/2 chronic disease (kidney disease) on epo # Nonspecific 1.5 cm low-attenuation lesion within the anterior spleen # ESRD on HD 3x a week # Hypertension # Stroke # Chronic obstructive pulmonary disease # Schizoaffective disorder. Recs: # No heparin, plavix or aspirin for this patient until platelet count improves # May consider a IVC filter given thrombocytopenia if patient willing and permacath out # Monitor closely vitals, for PE # Anemia w/u has been reviewed, does not require iron # Continue use of epogen # Appreciate cardiology and pulm recs # May be transferred to [facility] for CT surg eval # Continue to follow from heme perspective Thank you, Samir Watkins MD Subjective Constitutional: Reports: no symptoms HEENT: Reports: no symptoms Cardiovascular: Reports: no symptoms Respiratory: Reports: no symptoms Gastrointestinal/Abdominal: Reports: no symptoms Genitourinary: Reports: no symptoms Neurologic/Psychiatric: Reports: no symptoms Endocrine: Reports: no symptoms Hematologic/Lymphatic: Reports: anemia Allergies: Coded Allergies: No Known Allergies (Verified , 10/28/06) Subjective stable, no complaints, no bleeding noted reported Objective Last 24 Hour Vital Signs Date Time Temp Pulse Resp B/P Pulse Ox O2 Delivery O2 Flow Rate FiO2 10/30/16 16:00 97.7 91 20 91/41 96 Room Air 10/30/16 12:00 95 10/30/16 11:49 97.7 95 20 93/40 97 Room Air 10/30/16 08:42 91 97/40 10/30/16 08:26 97.7 91 20 97/40 96 Room Air 10/30/16 08:00 89 10/30/16 04:00 98.1 93 20 110/56 98 Room Air 10/30/16 04:00 96 10/30/16 00:00 97.7 97 18 153/58 96 Room Air 10/30/16 00:00 91 10/29/16 21:00 87 106/45 10/29/16 20:00 97.0 87 22 106/45 98 Room Air 10/29/16 20:00 96 Intake and Output 10/29/16 10/30/16 19:00 07:00 Intake Total 240 ml 380 ml Balance 240 ml 380 ml Intake Oral 240 ml 380 ml # Voids 5 # Bowel Movements 3 4 Laboratory Tests 10/30/16 07:23: Phosphorus Level 3.3 Height (Feet): 5 Height (Inches): 7.00 Weight (Pounds): 121 General Appearance: no apparent distress EENT: TMs normal Neck: supple Cardiovascular: normal rate Respiratory/Chest: lungs clear Abdomen: no mass Extremities: non-tender Edema: 1+ Leg (L), 1+ Leg (R) Edema: mild edema Neurologic: oriented x 3 Skin: warm/dry Samir Watkins Oct 30, 2016 18:22
[2016-10-30 20:00] VITALS: BP 107/40
[2016-10-30] MEDS: Donepezil 10mg tab ORAL SCH (20:08)
[2016-10-30] MEDS: Atorvastatin 20mg tab ORAL SCH (20:08)
[2016-10-30] MEDS: Epogen (for ESRD on dialysis) SUBQ SCH (20:09)
[2016-10-31] VITALS: BP 134/40
[2016-10-31 04:00] VITALS: BP 107/36
[2016-10-31 07:18] LABS: MEAN CORPUSCULAR HEMOGLOBIN 29.7 PG (27.0-31.0); MEAN CORPUSCULAR HGB CONC 30.1 G/DL (32.0-36.0); MEAN CORPUSCULAR VOLUME 99 FL (80-99); MEAN PLATELET VOLUME 8.5 FL (6.5-10.1); PLATELET COUNT 52 K/UL (150-450); RED BLOOD COUNT 3.32 M/UL (4.70-6.10); RED CELL DISTRIBUTION WIDTH 18.3 % (11.6-14.8); WHITE BLOOD COUNT 6.4 K/UL (4.8-10.8)
[2016-10-31 07:47] LABS: CALCIUM 7.9 mg/dL (8.6-10.2); CREATININE 7.7 mg/dL (0.7-1.2); GLOMERULAR FILTRATION RATE 7.2 mL/min (>60); PHOSPHORUS 3.6 mg/dL (2.5-4.8); POTASSIUM 4.7 mEQ/L (3.4-4.9)
[2016-10-31 08:18] VITALS: BP 106/40
[2016-10-31 08:30] LABS: ANISOCYTOSIS 2+; BAND NEUTROPHILS % (MANUAL) 0 % (0-8); BASOPHILS % (MANUAL) 0 % (0-2); EOSINOPHILS % (MANUAL) 3 % (0-3); HYPOCHROMASIA 2+; LYMPHOCYTES % (MANUAL) 5 % (20-45); NEUTROPHILS % (MANUAL) 83 % (45-75); PLATELET ESTIMATE DECREASED; PLATELET MORPHOLOGY NORMAL; TOTAL CELLS COUNTED 100
[2016-10-31] MEDS: Lanthanum 1000mg tab ORAL SCH (09:00)
[2016-10-31] MEDS: Sensipar 30mg Tab ORAL SCH (09:14)
[2016-10-31] MEDS: Nephrovite tab ORAL SCH (09:14)
[2016-10-31] MEDS: Carvedilol 25mg Tab ORAL SCH ×2 (09:14→20:34)
[2016-10-31] MEDS: Aspirin EC 81mg tab ORAL SCH (09:14)
[2016-10-31] MEDS ORDERED: Heparin Sod 1000 units/ml 10ml IV PRN (09:15)
[2016-10-31] MEDS: Amiodarone 200mg tab ORAL SCH (09:21)
[2016-10-31 11:27] VITALS: BP 91/40
--- NOTE | 2016-10-31 15:03 | General Progress Note ---
Assessment/Plan Assessment/Plan Assessment: # DVT of the left common femoral vein with presence of a left femoral PermCath. Agree that best solution would be placement of IVC filter, however patient currently is not a candidate # Thrombocytopenia is 2/2 splenomegaly, she has had same plt count since 2006, have reviewed record, no HIV or hepatitis hx # Anemia 2/2 chronic disease (kidney disease) on epo # Nonspecific 1.5 cm low-attenuation lesion within the anterior spleen # ESRD on HD 3x a week # Hypertension # Stroke # Chronic obstructive pulmonary disease # Schizoaffective disorder Recs: # No heparin, plavix or aspirin for this patient until platelet count improves # May consider a IVC filter given thrombocytopenia if patient willing and permacath out # Monitor closely vitals, for development of PE # Anemia w/u has been reviewed, does not require iron # Continue use of epogen sq # Appreciate cardiology and pulm recs # May be transferred to [facility] or [facility] for CT surg eval # Continue to follow from heme perspective Thank you, Samir Watkins MD Subjective Constitutional: Reports: no symptoms HEENT: Reports: no symptoms Cardiovascular: Reports: no symptoms Respiratory: Reports: cough Gastrointestinal/Abdominal: Reports: no symptoms Genitourinary: Reports: no symptoms Neurologic/Psychiatric: Reports: anxiety Endocrine: Reports: no symptoms Hematologic/Lymphatic: Reports: anemia Allergies: Coded Allergies: No Known Allergies (Verified , 10/28/06) Subjective stable, no complaints, no bleeding Objective Last 24 Hour Vital Signs Date Time Temp Pulse Resp B/P Pulse Ox O2 Delivery O2 Flow Rate FiO2 10/31/16 11:27 97.0 96 18 91/40 100 Room Air 10/31/16 09:14 94 106/40 10/31/16 08:18 97.0 94 20 106/40 98 Room Air 10/31/16 08:00 93 10/31/16 04:00 91 10/31/16 04:00 97.5 96 18 107/36 95 Room Air 10/31/16 00:00 84 10/31/16 00:00 97.3 93 18 134/40 98 Room Air 10/30/16 20:10 91 91/41 10/30/16 20:00 97.6 83 20 107/40 97 Room Air 10/30/16 20:00 87 10/30/16 16:00 87 3/22/17 16:00 97.7 91 20 91/41 96 Room Air Intake and Output 10/30/16 10/31/16 19:00 07:00 Intake Total 350 ml 240 ml Balance 350 ml 240 ml Intake Oral 240 ml 240 ml IV Total 110 ml # Bowel Movements 3 Laboratory Tests 10/31/16 06:20: White Blood Count 6.4, Red Blood Count 3.32L, Hemoglobin 9.8L, Hematocrit 32.7L , Mean Corpuscular Volume 99, Mean Corpuscular Hemoglobin 29.7, Mean Corpuscular Hemoglobin Concent 30.1L, Red Cell Distribution Width 18.3H, Platelet Count 52L, Mean Platelet Volume 8.5, Neutrophils (%) (Auto) , Lymphocytes (%) (Auto) , Monocytes (%) (Auto) , Eosinophils (%) (Auto) , Basophils (%) (Auto) , Differential Total Cells Counted 100, Neutrophils % ( Manual) 83H, Lymphocytes % (Manual) 5L, Monocytes % (Manual) 9, Eosinophils % ( Manual) 3, Basophils % (Manual) 0, Band Neutrophils 0, Platelet Estimate DecreasedL, Platelet Morphology Normal, Hypochromasia 2+, Anisocytosis 2+, Sodium Level 139, Potassium Level 4.7, Chloride Level 100, Carbon Dioxide Level 21, Anion Gap 18H, Blood Urea Nitrogen 47H, Creatinine 7.7H, Estimat Glomerular Filtration Rate 7.2, Glucose Level 100, Calcium Level 7.9L, Phosphorus Level 3.6 Height (Feet): 5 Height (Inches): 7.00 Weight (Pounds): 125 General Appearance: alert EENT: TMs normal Neck: supple Cardiovascular: regular rhythm Respiratory/Chest: lungs clear Abdomen: soft Extremities: normal inspection Edema: 1+ Leg (L), 1+ Leg (R) Edema: mild edema Neurologic: alert Skin: warm/dry Samir Watkins Oct 31, 2016 15:03
--- NOTE | 2016-10-31 15:12 | Infectious Diseases Prog Note ---
Assessment/Plan Assessment/Plan A: Infective endocarditis of Aortic valve Bacteremia with CoNS Persistent Bacteremia ESRD on HD A Fibrillation HPN Aortic regurgitation Anemia P: continue IV Vancomycin Subjective ROS Limited/Unobtainable: No Respiratory: Reports: no symptoms Cardiovascular: Reports: no symptoms Gastrointestinal/Abdominal: Reports: no symptoms Genitourinary: Reports: no symptoms Musculoskeletal: Reports: no symptoms Allergies: Coded Allergies: No Known Allergies (Verified , 10/28/06) Objective Vital Signs Last 24 Hour Vital Signs Date Time Temp Pulse Resp B/P Pulse Ox O2 Delivery O2 Flow Rate FiO2 10/31/16 11:27 97.0 96 18 91/40 100 Room Air 10/31/16 09:14 94 106/40 10/31/16 08:18 97.0 94 20 106/40 98 Room Air 10/31/16 08:00 93 10/31/16 04:00 91 10/31/16 04:00 97.5 96 18 107/36 95 Room Air 10/31/16 00:00 84 10/31/16 00:00 97.3 93 18 134/40 98 Room Air 10/30/16 20:10 91 91/41 10/30/16 20:00 97.6 83 20 107/40 97 Room Air 10/30/16 20:00 87 10/30/16 16:00 87 10/30/16 16:00 97.7 91 20 91/41 96 Room Air Height (Feet): 5 Height (Inches): 7.00 Weight (Pounds): 125 General Appearance: no acute distress HEENT: mucous membranes moist Respiratory/Chest: lungs clear Cardiovascular: normal rate Abdomen: soft, non tender Extremities: no edema, other - R arm AV graft Skin: no ulcers Neurologic/Psychiatric: alert, responsive Microbiology Date/Time Source Procedure Growth Status 10/29/16 15:31 Blood Blood Culture - Preliminary Resulted 10/29/16 15:20 Blood Blood Culture - Preliminary Resulted 10/28/16 22:35 Blood Blood Culture - Preliminary NO GROWTH AFTER 48 HOURS Resulted 10/28/16 22:30 Blood Blood Culture - Preliminary NO GROWTH AFTER 48 HOURS Resulted Laboratory Tests Test 10/31/16 06:20 White Blood Count 6.4 K/UL (4.8-10.8) Red Blood Count 3.32 M/UL (4.70-6.10) L Hemoglobin 9.8 G/DL (14.2-18.0) L Hematocrit 32.7 % (42.0-52.0) L Mean Corpuscular Volume 99 FL (80-99) Mean Corpuscular Hemoglobin 29.7 PG (27.0-31.0) Mean Corpuscular Hemoglobin Concent 30.1 G/DL (32.0-36.0) L Red Cell Distribution Width 18.3 % (11.6-14.8) H Platelet Count 52 K/UL (150-450) L Mean Platelet Volume 8.5 FL (6.5-10.1) Neutrophils (%) (Auto) % (45.0-75.0) Lymphocytes (%) (Auto) % (20.0-45.0) Monocytes (%) (Auto) % (1.0-10.0) Eosinophils (%) (Auto) % (0.0-3.0) Basophils (%) (Auto) % (0.0-2.0) Differential Total Cells Counted 100 Neutrophils % (Manual) 83 % (45-75) H Lymphocytes % (Manual) 5 % (20-45) L Monocytes % (Manual) 9 % (1-10) Eosinophils % (Manual) 3 % (0-3) Basophils % (Manual) 0 % (0-2) Band Neutrophils 0 % (0-8) Platelet Estimate Decreased L Platelet Morphology Normal Hypochromasia 2+ Anisocytosis 2+ Sodium Level 139 mEQ/L (135-145) Potassium Level 4.7 mEQ/L (3.4-4.9) Chloride Level 100 mEQ/L (98-107) Carbon Dioxide Level 21 mEQ/L (20-30) Anion Gap 18 (5-15) H Blood Urea Nitrogen 47 mg/dL (7-23) H Creatinine 7.7 mg/dL (0.7-1.2) H Estimat Glomerular Filtration Rate 7.2 mL/min (>60) Glucose Level 100 mg/dL (74-106) Calcium Level 7.9 mg/dL (8.6-10.2) L Phosphorus Level 3.6 mg/dL (2.5-4.8) Current Medications Medications (Trade) Dose Ordered Sig/Maryellen Route PRN Reason Start Time Stop Time Status Last Admin Dose Admin Acetaminophen (Tylenol) 650 mg EVERY 4 HOURS PRN ORAL FEVER 10/25/16 10:30 11/24/16 10:29 10/30/16 17:22 Acetaminophen (Tylenol) 650 mg EVERY 4 HOURS PRN ORAL Mild Pain (Pain Scale 1-3) 10/25/16 10:30 11/24/16 10:29 10/31/16 03:27 Albumin Human (Albumisol) 100 ml @ 200 mls/hr PRN PRN IV sbp<90 during hd 10/31/16 09:15 10/31/16 23:59 Amiodarone HCl (Cordarone) 200 mg DAILY ORAL 10/25/16 12:30 11/24/16 12:29 10/31/16 09:21 Aspirin (Ecotrin) 81 mg DAILY ORAL 10/25/16 12:00 11/24/16 11:59 10/31/16 09:14 Atorvastatin Calcium (Lipitor) 20 mg BEDTIME ORAL 10/25/16 21:00 11/24/16 20:59 10/30/16 20:08 Bisacodyl (Dulcolax) 10 mg DAILY PRN RECTAL Constipation 10/25/16 10:30 11/24/16 10:29 Carvedilol (Coreg) 25 mg Q12HR ORAL 10/25/16 12:30 11/24/16 12:29 10/31/16 09:14 Cinacalcet (Sensipar) 60 mg DAILY ORAL 10/25/16 12:30 11/24/16 12:29 10/31/16 09:14 Diphenhydramine HCl (Benadryl) 25 mg BEDTIME PRN ORAL Itching 10/25/16 10:30 11/24/16 10:29 Donepezil HCl (Aricept) 10 mg BEDTIME ORAL 10/25/16 21:00 11/24/16 20:59 10/30/16 20:08 Epoetin Collin (Procrit (for ESRD on dialysis)) 5,000 units FRI-FRI-FRI SUBQ 10/25/16 21:00 11/24/16 20:59 10/30/16 20:09 Heparin Sodium (Porcine) (Heparin Sod 1000 units/ml 10ml) 500 unit ONCE PRN IV FOR HD USE ONLY 10/31/16 09:15 10/31/16 23:59 Lactulose (Cephulac) 20 gm EVERY 6 HOURS PRN ORAL Constipation 10/25/16 10:30 11/24/16 10:29 Lamotrigine (LaMICtal) 25 mg DAILY ORAL 10/25/16 12:30 11/24/16 12:29 10/31/16 09:14 Lanthanum Carbonate (Fosrenol) 1,000 mg DAILY ORAL 10/25/16 12:30 11/24/16 12:29 10/27/16 09:00 Pantoprazole (Protonix) 40 mg DAILY ORAL 10/25/16 12:30 11/24/16 12:29 10/31/16 09:14 Sevelamer Carbonate (Renvela) 800 mg TIAC ORAL 10/25/16 12:00 11/24/16 11:59 10/31/16 11:42 Sodium Chloride 1,000 ml @ 500 mls/hr Q2H PRN IVLG sbp<90 during hd 10/31/16 09:02 10/31/16 23:59 Vancomycin HCl 1 ea 1 ea DAILY PRN MISC Per rx protocol 10/27/16 14:30 11/26/16 14:29 Vitamin B Complex/ Vit C/Folic Acid (Nephrovite) 1 tab DAILY ORAL 10/25/16 12:30 11/24/16 12:29 10/31/16 09:14 PAVEL OSEI Oct 31, 2016 15:12
[2016-10-31 16:00] VITALS: BP 90/44
[2016-10-31] MEDS ORDERED: NS 275ml ONE (18:14)
[2016-10-31] MEDS ORDERED: Tubing IV Blood Pump IV ONE (18:14)
[2016-10-31] MEDS ORDERED: Tubing IV Secondary IV ONE (18:14)
--- NOTE | 2016-10-31 19:07 | General Progress Note ---
Assessment/Plan Problem List: (1) Unstable angina ICD Codes: I20.0 - Unstable angina SNOMED: 7625864 (2) ESRD (end stage renal disease) on dialysis ICD Codes: N18.6 - End stage renal disease; Z99.2 - Dependence on renal dialysis SNOMED: 719122469 (3) Chest pain ICD Codes: R07.9 - Chest pain, unspecified SNOMED: 34847577 (4) Renal failure ICD Codes: N19 - Unspecified kidney failure SNOMED: 57732564 (5) Hypotension ICD Codes: I95.9 - Hypotension, unspecified SNOMED: 68303908 (6) Endocarditis ICD Codes: I38 - Endocarditis, valve unspecified SNOMED: 898388, 44494210 Qualifiers: Qualified Codes: I33.0 - Acute and subacute infective endocarditis Status: stable Assessment/Plan iv abx ID eval possible [facility]. HD per renal possible transfer to [facility] for CT surgery eval bed rest for dvt. cannot put ivc filter due to groin perm cath. plts too low to heparinize status and poc d/w pt with [employer] Subjective ROS Limited/Unobtainable: No Constitutional: Reports: malaise, weakness HEENT: Reports: no symptoms Cardiovascular: Reports: no symptoms Respiratory: Reports: cough Gastrointestinal/Abdominal: Reports: no symptoms Genitourinary: Reports: no symptoms Neurologic/Psychiatric: Reports: no symptoms Endocrine: Reports: no symptoms Hematologic/Lymphatic: Reports: anemia Allergies: Coded Allergies: No Known Allergies (Verified , 10/28/06) All Systems: reviewed and negative except above Subjective no events. positive blood cultures noted. denies chest pain or sob. currently on [facility] transfer list. no beds yet. d/w [facility] cardiothoracic- Objective Last 24 Hour Vital Signs Date Time Temp Pulse Resp B/P Pulse Ox O2 Delivery O2 Flow Rate FiO2 10/31/16 16:21 Room Air 10/31/16 16:00 97.0 81 21 90/44 95 Room Air 10/31/16 12:00 91 10/31/16 11:27 97.0 96 18 91/40 100 Room Air 10/31/16 09:14 94 106/40 10/31/16 08:18 97.0 94 20 106/40 98 Room Air 10/31/16 08:00 93 10/31/16 04:00 91 10/31/16 04:00 97.5 96 18 107/36 95 Room Air 10/31/16 00:00 84 10/31/16 00:00 97.3 93 18 134/40 98 Room Air 10/30/16 20:10 91 91/41 10/30/16 20:00 97.6 83 20 107/40 97 Room Air 10/30/16 20:00 87 Intake and Output 10/30/16 10/31/16 19:00 07:00 Intake Total 350 ml 240 ml Balance 350 ml 240 ml Intake Oral 240 ml 240 ml IV Total 110 ml # Bowel Movements 3 Laboratory Tests 10/31/16 06:20: White Blood Count 6.4, Red Blood Count 3.32L, Hemoglobin 9.8L, Hematocrit 32.7L , Mean Corpuscular Volume 99, Mean Corpuscular Hemoglobin 29.7, Mean Corpuscular Hemoglobin Concent 30.1L, Red Cell Distribution Width 18.3H, Platelet Count 52L, Mean Platelet Volume 8.5, Neutrophils (%) (Auto) , Lymphocytes (%) (Auto) , Monocytes (%) (Auto) , Eosinophils (%) (Auto) , Basophils (%) (Auto) , Differential Total Cells Counted 100, Neutrophils % ( Manual) 83H, Lymphocytes % (Manual) 5L, Monocytes % (Manual) 9, Eosinophils % ( Manual) 3, Basophils % (Manual) 0, Band Neutrophils 0, Platelet Estimate DecreasedL, Platelet Morphology Normal, Hypochromasia 2+, Anisocytosis 2+, Sodium Level 139, Potassium Level 4.7, Chloride Level 100, Carbon Dioxide Level 21, Anion Gap 18H, Blood Urea Nitrogen 47H, Creatinine 7.7H, Estimat Glomerular Filtration Rate 7.2, Glucose Level 100, Calcium Level 7.9L, Phosphorus Level 3.6 Height (Feet): 5 Height (Inches): 7.00 Weight (Pounds): 125 Objective General Appearance: WD/WN, alert, thin Neck: supple Cardiovascular: regular rhythm Respiratory/Chest: chest wall non-tender, lungs clear, normal breath sounds Abdomen: normal bowel sounds, non tender, soft, no organomegaly Edema: no edema noted Arm (L), no edema noted Arm (R), no edema noted Leg (L), no edema noted Leg (R), no edema noted Pedal (L), no edema noted Pedal (R), no edema noted Generalized Edema: trace edema Neurologic: alert, responsive ALVARADO LOZANO Oct 31, 2016 19:07
[2016-10-31 20:00] VITALS: BP 101/41
[2016-10-31] MEDS: Atorvastatin 20mg tab ORAL SCH (20:33)
[2016-10-31] MEDS: Donepezil 10mg tab ORAL SCH (20:33)
--- NOTE | 2016-10-31 20:52 | Nephrology Progress Note ---
Assessment/Plan Problem List: (1) Malnutrition of moderate degree (2) CVA, old, hemiparesis (3) ESRD (end stage renal disease) on dialysis (4) Chest pain (5) DVT (deep venous thrombosis) (6) Bacteremia associated with intravascular line (7) Sepsis Plan dialysis 10/31 uf limited by low normal bp, , coag neg staph in bc, repeat bc also g+ cocci, vanco ordered, dvt thrombocytopenia and studies ordered, would try to avoid ivc filter above femoral dialysis cath, cath may need removal, repeat blood cultures 10/29 +, will discuss Subjective Constitutional: Reports: weakness HEENT: Reports: no symptoms Genitourinary: Reports: no symptoms Neurologic/Psychiatric: Reports: pre-existing deficit Objective Objective Last 24 Hour Vital Signs Date Time Temp Pulse Resp B/P Pulse Ox O2 Delivery O2 Flow Rate FiO2 10/31/16 20:34 92 104/50 10/31/16 16:21 Room Air 10/31/16 16:00 97.0 81 21 90/44 95 Room Air 10/31/16 16:00 94 10/31/16 12:00 91 10/31/16 11:27 97.0 96 18 91/40 100 Room Air 10/31/16 09:14 94 106/40 10/31/16 08:18 97.0 94 20 106/40 98 Room Air 10/31/16 08:00 93 10/31/16 04:00 91 10/31/16 04:00 97.5 96 18 107/36 95 Room Air 10/31/16 00:00 84 10/31/16 00:00 97.3 93 18 134/40 98 Room Air Intake and Output 10/30/16 10/31/16 19:00 07:00 Intake Total 350 ml 240 ml Balance 350 ml 240 ml Intake Oral 240 ml 240 ml IV Total 110 ml # Bowel Movements 3 Laboratory Tests 10/31/16 06:20: White Blood Count 6.4, Red Blood Count 3.32L, Hemoglobin 9.8L, Hematocrit 32.7L , Mean Corpuscular Volume 99, Mean Corpuscular Hemoglobin 29.7, Mean Corpuscular Hemoglobin Concent 30.1L, Red Cell Distribution Width 18.3H, Platelet Count 52L, Mean Platelet Volume 8.5, Neutrophils (%) (Auto) , Lymphocytes (%) (Auto) , Monocytes (%) (Auto) , Eosinophils (%) (Auto) , Basophils (%) (Auto) , Differential Total Cells Counted 100, Neutrophils % ( Manual) 83H, Lymphocytes % (Manual) 5L, Monocytes % (Manual) 9, Eosinophils % ( Manual) 3, Basophils % (Manual) 0, Band Neutrophils 0, Platelet Estimate DecreasedL, Platelet Morphology Normal, Hypochromasia 2+, Anisocytosis 2+, Sodium Level 139, Potassium Level 4.7, Chloride Level 100, Carbon Dioxide Level 21, Anion Gap 18H, Blood Urea Nitrogen 47H, Creatinine 7.7H, Estimat Glomerular Filtration Rate 7.2, Glucose Level 100, Calcium Level 7.9L, Phosphorus Level 3.6 Height (Feet): 5 Height (Inches): 7.00 Weight (Pounds): 125 General Appearance: no apparent distress, thin EENT: PERRL/EOMI Neck: supple Cardiovascular: normal rate Respiratory/Chest: lungs clear Abdomen: non tender, soft, no organomegaly Neurologic: abnormal machine staker II-XII, motor weakness LOUIE DÍAZ Oct 31, 2016 20:52
[2016-10-31] MEDS ORDERED: Sodium Bicarbonate 8.4% 50ml Inj IV PRN (21:00)
[2016-10-31] MEDS ORDERED: Lidocaine 1% Plain 30 ml INJ PRN (21:00)
[2016-10-31] MEDS ORDERED: Heparin 2000 units/Ns 1000ml INJ PRN (21:00)
[2016-11-01 00:20] VITALS: BP 101/43
--- NOTE | 2016-11-01 00:48 | Progress Note ---
DATE: 10/31/2016 CARDIOLOGY PROGRESS NOTE SUBJECTIVE: The patient remains on bedrest for DVT. He has a PermCath in the right groin. He remains with low range blood pressure. OBJECTIVE: VITAL SIGNS: Blood pressure 90/44, pulse 81, and respirations 20. He is afebrile. LUNGS: Clear. CARDIAC: Regular rhythm and rate. Normal S1 and S2 with a 1/4 decrescendo. ABDOMEN: Soft. He has a right groin dialysis catheter in place. EXTREMITIES: No edema. LABORATORY DATA: Repeat blood cultures are negative. IMPRESSION: 1. Aortic valve endocarditis. 2. Paroxysmal atrial fibrillation. 3. End-stage renal disease. 4. Anemia. 5. Thrombocytopenia. 6. Low range blood pressure. PLAN: 1. Antibiotics. 2. Monitor blood counts. 3. Bedrest. 4. Transfer plans to a tertiary facility for cardiac arrest evaluation. 5. Hemodialysis with limited ultrafiltration, based on blood pressure parameters. Vasu Hayes M.D. DR: VILMA JOB#: [id number] CC:
[2016-11-01 04:00] VITALS: BP 137/69
--- NOTE | 2016-11-01 04:58 | Progress Note ---
DATE: 10/30/2016 CARDIOLOGY PROGRESS NOTE Late entry for 10/30/2016 SUBJECTIVE: The patient is status post dialysis yesterday. Blood pressure was low, fluid challenges have been required at times. OBJECTIVE: VITAL SIGNS: Blood pressure 97/40, pulse 91, and respiratory rate 20. LUNGS: Clear. CARDIAC: Regular. Normal S1 and S2. A 1/4 diastolic decrescendo. ABDOMEN: Soft. EXTREMITIES: No edema. LABORATORY AND DIAGNOSTIC DATA: Repeat blood cultures remained negative. IMPRESSION: 1. Endocarditis of the aortic valve. 2. End-stage renal disease. 3. Bacteremia with methicillin resistant Staphylococcus aureus. 4. Deep venous thrombosis of left common femoral vein, left femoral PermCath. 5. Aortic insufficiency. 6. Thrombocytopenia. PLAN: 1. Antibiotic complete course, transesophageal echocardiogram and CT surgery evaluation as remaining hemodynamically stable without any further bacteremia, hemodialysis with ultrafiltration. Possible IVC filter. 2. May need removal of dialysis catheter. 3. Bed rest. Vasu Hayes M.D. DR: Katharine JOB#: [id number] CC:
[2016-11-01 08:37] VITALS: BP 81/40
[2016-11-01] MEDS: Lanthanum 1000mg tab ORAL SCH (08:40)
[2016-11-01] MEDS: Amiodarone 200mg tab ORAL SCH (08:41)
[2016-11-01] MEDS: Sensipar 30mg Tab ORAL SCH (08:41)
[2016-11-01] MEDS: Nephrovite tab ORAL SCH (08:41)
[2016-11-01] MEDS: Carvedilol 25mg Tab ORAL SCH (08:42)
[2016-11-01] MEDS: Aspirin EC 81mg tab ORAL SCH (08:42)
--- NOTE | 2016-11-01 09:08 | General Progress Note ---
Assessment/Plan Problem List: (1) Unstable angina ICD Codes: I20.0 - Unstable angina SNOMED: 9136407 (2) ESRD (end stage renal disease) on dialysis ICD Codes: N18.6 - End stage renal disease; Z99.2 - Dependence on renal dialysis SNOMED: 784029653 (3) Chest pain ICD Codes: R07.9 - Chest pain, unspecified SNOMED: 22111887 (4) Renal failure ICD Codes: N19 - Unspecified kidney failure SNOMED: 72690910 (5) Hypotension ICD Codes: I95.9 - Hypotension, unspecified SNOMED: 90523949 (6) Endocarditis ICD Codes: I38 - Endocarditis, valve unspecified SNOMED: 171913, 34572474 Qualifiers: Qualified Codes: I33.0 - Acute and subacute infective endocarditis Status: stable Assessment/Plan iv abx per id possible [facility]- defer to cards HD per renal possible transfer to [facility] for CT surgery eval bed rest for dvt. cannot put ivc filter due to groin perm cath. plts too low to heparinize on [facility] transfer list to hospital with ct surgery services. no beds yet status and poc d/w pt with [facility] Subjective ROS Limited/Unobtainable: No Constitutional: Reports: malaise, weakness HEENT: Reports: no symptoms Cardiovascular: Reports: no symptoms Respiratory: Reports: no symptoms Gastrointestinal/Abdominal: Reports: no symptoms Genitourinary: Reports: no symptoms Neurologic/Psychiatric: Reports: no symptoms Endocrine: Reports: no symptoms Hematologic/Lymphatic: Reports: no symptoms Allergies: Coded Allergies: No Known Allergies (Verified , 10/28/06) All Systems: reviewed and negative except above Subjective no events. positive blood cultures noted. denies chest pain or sob. currently on [facility] transfer list. no beds yet. d/w [facility] cardiothoracic- Objective Last 24 Hour Vital Signs Date Time Temp Pulse Resp B/P Pulse Ox O2 Delivery O2 Flow Rate FiO2 11/01/16 08:42 84 81/40 11/01/16 08:37 97.2 84 18 81/40 98 Room Air 11/01/16 04:00 73 11/01/16 04:00 98.0 67 20 137/69 96 Room Air 11/01/16 00:20 97.0 98 20 101/43 95 Room Air 11/01/16 00:00 91 10/31/16 20:34 92 104/50 10/31/16 20:00 97 10/31/16 20:00 97.2 93 20 101/41 96 Room Air 10/31/16 16:21 Room Air 10/31/16 16:00 97.0 81 21 90/44 95 Room Air 10/31/16 16:00 94 10/31/16 12:00 91 10/31/16 11:27 97.0 96 18 91/40 100 Room Air 10/31/16 09:14 94 106/40 Intake and Output 10/31/16 11/01/16 19:00 07:00 Intake Total 360 ml Balance 360 ml Intake Oral 360 ml # Voids 1 # Bowel Movements 1 Height (Feet): 5 Height (Inches): 7.00 Weight (Pounds): 121 Objective General Appearance: WD/WN, alert, thin Neck: supple Cardiovascular: regular rhythm Respiratory/Chest: chest wall non-tender, lungs clear, normal breath sounds Abdomen: normal bowel sounds, non tender, soft, no organomegaly Edema: no edema noted Arm (L), no edema noted Arm (R), no edema noted Leg (L), no edema noted Leg (R), no edema noted Pedal (L), no edema noted Pedal (R), no edema noted Generalized Edema: trace edema Neurologic: alert, responsive ALVARADO LOZANO Nov 01, 2016 09:08
--- NOTE | 2016-11-01 11:30 | Infectious Diseases Prog Note ---
Assessment/Plan Assessment/Plan antibiotics : vancomycin iv A 1. coag neg staph persistent sepsis 2. aortic valve endocarditis 3. atrial fibrillation 4. HTN P 1. continue iv vancomycin 2. add iv gentamicin synergy doses 5 days 3. start rifampin Subjective Constitutional: Denies: chills, fever Respiratory: Denies: dry cough, shortness of breath Gastrointestinal/Abdominal: Denies: diarrhea, nausea, vomiting Musculoskeletal: Denies: pain Allergies: Coded Allergies: No Known Allergies (Verified , 10/28/06) Objective Vital Signs Last 24 Hour Vital Signs Date Time Temp Pulse Resp B/P Pulse Ox O2 Delivery O2 Flow Rate FiO2 11/01/16 08:42 84 81/40 11/01/16 08:37 97.2 84 18 81/40 98 Room Air 11/01/16 04:00 73 11/01/16 04:00 98.0 67 20 137/69 96 Room Air 11/01/16 00:20 97.0 98 20 101/43 95 Room Air 11/01/16 00:00 91 10/31/16 20:34 92 104/50 10/31/16 20:00 97 10/31/16 20:00 97.2 93 20 101/41 96 Room Air 10/31/16 16:21 Room Air 10/31/16 16:00 97.0 81 21 90/44 95 Room Air 10/31/16 16:00 94 10/31/16 12:00 91 10/31/16 11:27 97.0 96 18 91/40 100 Room Air Height (Feet): 5 Height (Inches): 7.00 Weight (Pounds): 121 Respiratory/Chest: lungs clear Cardiovascular: normal rate, regular rhythm, no gallop/murmur Abdomen: soft, non tender Extremities: no edema Microbiology Date/Time Source Procedure Growth Status 10/29/16 15:31 Blood Blood Culture - Preliminary Staphylococcus Sp Coag Neg Resulted 10/29/16 15:20 Blood Blood Culture - Preliminary Staphylococcus Sp Coag Neg Resulted BELLA AGUILAR Nov 01, 2016 11:30
[2016-11-01 11:38] VITALS: BP 85/37
[2016-11-01] MEDS ORDERED: Gentamicin Rx monitoring MISC PRN (11:45)
[2016-11-01] MEDS ORDERED: Sodium Bicarbonate 8.4% 50ml Inj IV PRN (13:45)
[2016-11-01] MEDS ORDERED: Lidocaine 1% Plain 30 ml INJ PRN (13:45)
[2016-11-01] MEDS ORDERED: Gentamicin inj 160 MG in NS 110 ML IVPB ONE (14:00)
[2016-11-01] MEDS ORDERED: Vancomycin 750mg/D5W 275ml IVPB ONE ×2 (16:00)
--- NOTE | 2016-11-01 17:22 | Diagnostic Imaging Report ---
Indications: Infected permacath Technique: Sterile prepping and draping left groin. Local anesthesia with 1% lidocaine. Chest dermatotomy extended. Using blunt dissection, the cuff of the catheter was freed from the surrounding soft tissues, and the catheter was removed. Procedure performed with patient in bed, no imaging performed. The patient tolerated the procedure well, without immediate complication. Comparison: None Findings: None there are no imaging performed Impression: Successful removal of tunneled dialysis catheter, as noted.
--- NOTE | 2016-11-01 20:05 | General Progress Note ---
Assessment/Plan Assessment/Plan Assessment: # DVT of the left common femoral vein with presence of a left femoral PermCath. Agree that best solution would be placement of IVC filter, however patient currently is not a candidate # Thrombocytopenia is 2/2 splenomegaly, she has had same plt count since 2006, have reviewed record, no HIV or hepatitis hx # Anemia 2/2 chronic disease (kidney disease) on epo # Nonspecific 1.5 cm low-attenuation lesion within the anterior spleen # ESRD on HD 3x a week # Hypertension # Stroke # Chronic obstructive pulmonary disease # Schizoaffective disorder Recs: # No heparin, plavix or aspirin for this patient until platelet count improves # May consider a IVC filter given thrombocytopenia if patient willing and permacath out # Monitor closely vitals, for development of PE # Anemia w/u has been reviewed, does not require iron # Continue use of epogen sq # Appreciate cardiology and pulm recs # Transfering today to [facility] # Continue to follow from heme perspective Thank you, Samir Watkins MD Subjective Constitutional: Reports: no symptoms HEENT: Reports: no symptoms Cardiovascular: Reports: no symptoms Respiratory: Reports: no symptoms Gastrointestinal/Abdominal: Reports: poor appetite Genitourinary: Reports: no symptoms Neurologic/Psychiatric: Reports: no symptoms Endocrine: Reports: no symptoms Hematologic/Lymphatic: Reports: anemia Allergies: Coded Allergies: No Known Allergies (Verified , 10/28/06) Subjective stable, no complaints, no bleeding reported Objective Last 24 Hour Vital Signs Date Time Temp Pulse Resp B/P Pulse Ox O2 Delivery O2 Flow Rate FiO2 11/01/16 12:00 88 11/01/16 11:38 97.0 89 18 85/37 100 Room Air 11/01/16 08:42 84 81/40 11/01/16 08:37 97.2 84 18 81/40 98 Room Air 11/01/16 08:00 91 11/01/16 04:00 73 11/01/16 04:00 98.0 67 20 137/69 96 Room Air 11/01/16 00:20 97.0 98 20 101/43 95 Room Air 11/01/16 00:00 91 10/31/16 20:34 92 104/50 Intake and Output 10/31/16 11/01/16 19:00 07:00 Intake Total 360 ml Balance 360 ml Intake Oral 360 ml # Voids 1 # Bowel Movements 1 Laboratory Tests 11/01/16 10:50: Random Vancomycin Level 11.9 Height (Feet): 5 Height (Inches): 7.00 Weight (Pounds): 121 General Appearance: no apparent distress EENT: normal ENT inspection Neck: normal inspection Cardiovascular: regular rhythm Respiratory/Chest: lungs clear Abdomen: non tender, no organomegaly Extremities: non-tender Edema: 1+ Leg (L), 1+ Leg (R) Edema: mild edema Neurologic: alert Skin: warm/dry Samir Watkins Nov 01, 2016 20:05
--- NOTE | 2016-11-01 20:08 | Progress Note ---
DATE: 11/01/2016 CARDIOLOGY PROGRESS NOTE SUBJECTIVE: The patient remains with positive blood cultures. He remains on bedrest due to DVT. He has a right groin PermCath. OBJECTIVE: VITAL SIGNS: Afebrile, blood pressure 85/37, pulse 89, respiratory rate 18 and blood pressure earlier 137/69. LUNGS: Bilateral breath sounds. No rales. HEART: Irregularly irregular rhythm. Normal S1 and S2. ABDOMEN: Soft. EXTREMITIES: Trace edema. IMPRESSION: 1. Methicillin resistant Staphylococcus aureus bacteremia. 2. Aortic valve endocarditis. 3. Deep vein thrombosis. 4. Paroxysmal atrial fibrillation. 5. End-stage renal disease. 6. Right groin catheter. 7. Thrombocytopenia. PLAN: Continue antibiotics. We will consider [facility] if not transferred over the next few days, however at this time, it will not change current management. The patient's needs CT surgery. Consideration for a new catheter to follow IV antibiotics. Vasu Hayes M.D. DR: EASTON JOB#: [id number] CC:
--- NOTE | 2016-11-01 22:16 | Nephrology Progress Note ---
Assessment/Plan Problem List: (1) Malnutrition of moderate degree (2) CVA, old, hemiparesis (3) ESRD (end stage renal disease) on dialysis (4) Chest pain (5) DVT (deep venous thrombosis) (6) Bacteremia associated with intravascular line (7) Sepsis Plan dialysis 10/31 uf limited by low normal bp, , coag neg staph in bc, repeat bc also g+ cocci, vanco ordered, dvt thrombocytopenia and studies ordered, would try to avoid ivc filter above femoral dialysis cath, cath may need removal, repeat blood cultures 10/29 +, will discuss, cath removal 11/01 Subjective Constitutional: Reports: weakness HEENT: Reports: no symptoms Genitourinary: Reports: no symptoms Objective Objective Last 24 Hour Vital Signs Date Time Temp Pulse Resp B/P Pulse Ox O2 Delivery O2 Flow Rate FiO2 11/01/16 12:00 88 11/01/16 11:38 97.0 89 18 85/37 100 Room Air 11/01/16 08:42 84 81/40 11/01/16 08:37 97.2 84 18 81/40 98 Room Air 11/01/16 08:00 91 11/01/16 04:00 73 11/01/16 04:00 98.0 67 20 137/69 96 Room Air 11/01/16 00:20 97.0 98 20 101/43 95 Room Air 11/01/16 00:00 91 Intake and Output 10/31/16 11/01/16 19:00 07:00 Intake Total 360 ml Balance 360 ml Intake Oral 360 ml # Voids 1 # Bowel Movements 1 Laboratory Tests 11/01/16 10:50: Random Vancomycin Level 11.9 Height (Feet): 5 Height (Inches): 7.00 Weight (Pounds): 121 General Appearance: no apparent distress, alert EENT: normal ENT inspection Neck: normal alignment Cardiovascular: normal rate, regular rhythm Respiratory/Chest: lungs clear Abdomen: non tender, soft LOUIE DÍAZ Nov 01, 2016 22:16
--- NOTE | 2016-11-03 09:38 | Progress Note ---
November 01, 2016 CARDIOLOGY PROGRESS NOTE - 2nd visit SUBJECTIVE: The patient remains with low-range blood pressure readings, limiting hemodialysis and ultrafiltration. He continues to have positive blood cultures with coagulase-negative staph bacteremia. The patient has DVT in the right lower extremity above the prior dialysis cathetersite. OBJECTIVE: VITAL SIGNS: Blood pressure 85/37, pulse 89, and respiratory rate 18. LUNGS: Bilateral breath sounds. Few rhonchi. HEART: Regular rhythm and rate. ABDOMEN: Soft. Extremities: Dependent edema left groin with dressing in place. IMPRESSION: 1. Aortic valve endocarditis. 2. Infected dialysis catheter, removed. 3. DVT. 4. Sepsis. PLAN: 1. New dialysis catheter to be placed. 2. Follow up blood cultures to be obtained. 3. Transfer to a tertiary facility for cardiothoracic management today. Vasu Hayes M.D. DR: ELICEO JOB#: [id number] CC: SUKI
--- NOTE | 2016-11-03 18:23 | Cardiology Report ---
APPROVED REPORT EKG Measurement Heart [id number] Sinus rhythm with premature supraventricular complexes Nonspecific ST and T wave abnormality Prolonged QT Abnormal ECG
--- NOTE | 2016-11-04 15:27 | Discharge Summary ---
Discharge Summary Hospital Course Date of Admission Oct 25, 2016 at 09:13 Date of Discharge Nov 01, 2016 at 17:00 Admitting Diagnosis hypotension , renal failure, esrd HPI Theron Bazzi is a 61 year old male who was admitted on Oct 25, 2016 at 09:13 for Hypotension,Renal Failure,End Stage Renal Disease Hospital Course dc summary #[id number] Discharge Condition Upon Discharge: stable Discharge Disposition Patient was transferred to [facility] for further management ( tertiary care facility) Discharge Diagnoses: Discharge Instructions Discharge Instructions Special Instructions I have been assigned to complete a D/C Summary on this account. I was not involved in the patient management Chuyita Fraire NP (Vanchtein) Nov 04, 2016 15:27
--- NOTE | 2016-11-05 06:09 | Discharge Summary 2 SIG ---
DATE OF ADMISSION: 10/25/2016 DATE OF DISCHARGE: 11/01/2016 REASON FOR ADMISSION: 61-year-old male with end-stage renal disease, stroke, paroxysmal atrial fibrillation, chronic obstructive pulmonary disease, hypertension, and history of schizoaffective disorder, was transferred from the shelter facility with complaint of chest pain. The patient had substernal chest pain and noted to be hypotensive. Initial cardiac enzymes were unremarkable. Chest x-ray was clear. Potassium was 6. The patient was admitted for further management, rule out acute coronary syndrome., ADMITTING DIAGNOSES: 1. Chest pain, rule out acute coronary syndrome. 2. Shock 2. Chronic obstructive pulmonary disease. 3. Hypotension with history of hypertension. 4. End-stage renal disease, on hemodialysis. 5. Thrombocytopenia. HOSPITAL STAY: The patient admitted to telemetry. Blood pressure was closely monitored. Initially thought patient will need pressors. Patient was not fluid overload. No ultrafiltration with hemodialysis, IV albumin, fluid challenge were initially implemented, blood pressure remained at the low side, but no need for pressors, remained hemodynamically stable.. Serial troponin were negative. Transcription Typist consult was requested. No acute ischemic changes on ECG. Patient was ruled out for acute NM. Echocardiogram revealed preserved ejection fracture of 60% to 65%, moderate left ventricular hypertrophy, right ventricular systolic pressure of 32, echodensity of the right coronary cusp suspicious for vegetation, moderate mitral regurgitation, and moderate aortic regurgitation. Chest x-ray was negative. CT of the abdomen and pelvis revealed massive splenomegaly. Venous duplex bilateral lower extremities revealed acute DVT of left lower extremity. Transcription Typist followed the patient. Transcription Typist recommended to consider [facility] if not transferred since the patient was placed on the waiting list to be transferred to [facility]. At this point, while in the hospital, the patient was given IV antibiotics, antiplatelet medication and hemodialysis was done as per subway car repairer. Renal parameters and electrolytes were closely monitored. Nephrotoxic were avoided. Per Cardiology, the patient needs cardiothoracic surgeon for further evaluation of valvular heart disease. Blood culture revealed Staph coagulase negative initially, repeated blood culture were negative and the last set again demonstrated Staph coagulase negative. The patient required transfer to tertiary care facility for cardiothoracic evaluation and possibly surgical interventions. Chain Machine Operator followed the patient. Per subway car repairer, no ultrafiltration. Tila infected hemodialysis catheter was removed on the 2016. Vascular surgeon seen the patient for placement of the vascular catheter and recommended Hematology evaluation due to thrombocytopenia. Food Products Tester seen the patient and recommended in lieu of the low platelets, no heparin, no aspirin, and no antiplatelets therapy, all were discontinued. Food Products Tester was considering IVC filter. after removal of permanent catheter. The patient agreed to IVC filter placement. The patient with evidence of acute DVT, left lower extremity, common femoral vein according to venous duplex. Hemoglobin and hematocrit were closely monitored and were at baseline, no need for the iron. Low iron panel, but high ferritin. The patient was on Epogen due to anemia of chronic renal disease. Nutritional support provided. On the 11/01/2016, the bed became available at [facility]. The patient was transferred via [facility] ambulance for further management to [facility]. Will need IVC placement as well. FINAL DIAGNOSES: 1. Sepsis 2. Shock. 3. Persistent bacteremia/Staph coag negative 4. Aortic valve endocarditis. 5. Infected hemodialysis catheter, s/p removal 6. Paroxysmal atrial fibrillation. 7. Chronic obstructive pulmonary disease. 8. End-stage renal disease, on hemodialysis. 9. Hypotension with history of hypertension. 10.Anemia of chronic disease. 11.Acute deep vein thrombosis, left lower extremity. 12.Valvular heart disease: mdoerate MT and mdoerate TR Thrombocytopenia 13.Schizoaffective disorder. 14.History of cerebrovascular accident with left hemiparesis. 15. Moderate protein -calorie malnutrition. DISCHARGE MEDICATIONS: List of medication was sent to [facility] DISCHARGE INSTRUCTIONS: Follow up with medical doctor at [facility] lupus. The patient will be seen by cardiothoracic surgeon for further management. Jefe Aguayo M.D. I have been assigned to dictate discharge summary on this account and I was not involved in the patient's management. Chuyita Inigueztiera N.P. DR: YUKO JOB#: [id number] CC: SUKI
== END 2016-11-01 17:00 | disposition short-term general hospital (02) | DRG 871 ==
LOC: EDBD 06:59 → EMR 07:40 → EDBEDREQ 09:06 → 2E 09:13 → EDBEDREQ 10:17
PROC: 5A1D60Z (ICD-10-PCS; principal; 2016-10-26)
PROC: 30233N1 Transfusion of Nonautologous Red Blood Cells into Peripheral Vein, Percutaneous Approach (ICD-10-PCS; 2016-10-28)
DX: A41.01 Sepsis due to Methicillin susceptible Staphylococcus aureus (principal); I33.9 Acute and subacute endocarditis, unspecified; R65.21 Severe sepsis with septic shock; N18.6 End stage renal disease; I12.0 Hypertensive chronic kidney disease with stage 5 chronic kidney disease or end stage renal disease; T82.590A Other mechanical complication of surgically created arteriovenous fistula, initial encounter; E44.0 Moderate protein-calorie malnutrition; I95.9 Hypotension, unspecified; I20.0 Unstable angina; I69.359 Hemiplegia and hemiparesis following cerebral infarction affecting unspecified side; Z68.1 Body mass index [BMI] 19.9 or less, adult; I69.354 Hemiplegia and hemiparesis following cerebral infarction affecting left non-dominant side; I50.9 Heart failure, unspecified; I48.0 Paroxysmal atrial fibrillation; Z99.2 Dependence on renal dialysis; K21.9 Gastro-esophageal reflux disease without esophagitis; J44.9 Chronic obstructive pulmonary disease, unspecified; D63.8 Anemia in other chronic diseases classified elsewhere; F25.9 Schizoaffective disorder, unspecified; Y83.8 Other surgical procedures as the cause of abnormal reaction of the patient, or of later complication, without mention of misadventure at the time of the procedure
CPT/HCPCS: 36415; 36589; 71010; 74176; 76700; 80048; 80053; 80076; 80202; 82550; 82553; 82607; 82728; 83540; 83550; 83605; 83615; 83690; 84100; 84484; 85007; 85025; 85044; 85060; 85379; 85610; 85730; 86703; 86705; 86709; 86803; 86850; 86900; 86901; 86920; 87040; 87081; 87181; 87340; 93005; 93306; 93922; 93970